=== PATIENT | male | born 1960 | race Caucasian/White ===

== ENCOUNTER 2022-04-02 09:45 | Emergency (ER) | payer MEDICARE ==
[2022-04-02 10:20] VITALS: BP 106/72; O2SAT 99
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
[2022-04-02 11:14] VITALS: PULSE 72
== END 2022-04-02 11:14 | disposition home or self-care (01) ==
LOC: ED 09:45
DX: H61.22 Impacted cerumen, left ear (principal); J44.9 Chronic obstructive pulmonary disease, unspecified; E11.9 Type 2 diabetes mellitus without complications; Z79.84 Long term (current) use of oral hypoglycemic drugs; Z79.899 Other long term (current) drug therapy
CPT/HCPCS: 99281

== ENCOUNTER 2022-06-26 14:23 | Emergency (ER) | payer MEDICARE ==
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
[2022-06-26 14:36] VITALS: BP 118/55; PULSE 78; O2SAT 98
[2022-06-26] MEDS ORDERED: Rocephin 1000 MG INJ IM ONE (15:26)
[2022-06-26] MEDS ORDERED: TORAdol 30 mg Injection IM ONE (15:26)
[2022-06-26] MEDS ORDERED: TORAdol 30 mg Injection ONE (16:04)
[2022-06-26] MEDS ORDERED: Rocephin 1000 MG INJ ONE (16:04)
== END 2022-06-26 16:28 | disposition home or self-care (01) ==
LOC: ED 14:23
DX: L03.011 Cellulitis of right finger (principal); M79.644 Pain in right finger(s); E11.9 Type 2 diabetes mellitus without complications; Z79.84 Long term (current) use of oral hypoglycemic drugs; Z79.899 Other long term (current) drug therapy
CPT/HCPCS: 96372; 99283; J0696; J1885

== ENCOUNTER 2022-07-09 10:57 | Emergency (ER) | payer MEDICARE ==
[2022-07-09] MEDS ORDERED: Sodium Chloride 0.9% 1000 ML 1,000 ML IV STA ×2 (11:28→13:18)
[2022-07-09] MEDS ORDERED: PROTONIX 40 MG IV IV ONE ×2 (11:28→11:33)
[2022-07-09] MEDS ORDERED: Zofran 4 MG/2 ML VIAL IV ONE (11:28)
[2022-07-09] MEDS ORDERED: MORPHINE SULFATE 4 MG INJ IV ONE (11:32)
[2022-07-09] MEDS ORDERED: MORPHINE SULFATE 4 MG INJ ONE (11:33)
[2022-07-09] MEDS ORDERED: Sodium Chloride 0.9% 1000 ML 1,000 ML ONE ×2 (11:33→13:18)
[2022-07-09] MEDS ORDERED: Zofran 4 MG/2 ML VIAL ONE (11:33)
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
[2022-07-09 11:45] LABS: Absolute Neutrophil Ct (ANC) 12.28 x10^3/uL (1.4-6.9); BASOPHIL % 0.1 % (0.0-0.4); Basophil (Absolute #) 0.02 x10^3/uL (0-0.4); Eosinophil % 0.1 % (0.00-5.0); Eosinophil (Absolute #) 0.02 x10^3/uL (0-0.5); Hematocrit 48.8 % (42-50); Hemoglobin 15.8 g/dL (12.5-18.0); IMMATURE GRAN # 0.06 x10^3u/L (0.00-0.03); IMMATURE GRAN % 0.4 % (0.00-0.4); Lymphocyte (Absolute #) 1.35 x10^3/uL (1.0-4.6); Mean Cell Volume 92.2 fL (78-100); Mean Corpuscular Hemoglobin 29.9 pg (26-32); Mean Corpuscular Hgb Concent. 32.4 g/dL (32-36); Mean Platelet Volume 10.4 fL (7.5-11.0); Monocyte (Absolute #) 1.26 x10^3/uL (0.0-1.3); Monocytes % 8.4 % (0.0-12.0); Platelet Count 258 x10^3/uL (150-450); Red Blood Count 5.29 x10^6/uL (4.1-5.6); Red Cell Distribution Width 15.9 % (11.5-14.0)
[2022-07-09 12:02] LABS: Appearance Clear (Clear); Bacteria None Seen /HPF (None Seen); Bilirubin Negative (Negative); Blood Small (Negative); Epithelial Cells None Seen /HPF (None Seen); Glucose, Urine >=1000 mg/dL (Negative); Ketones 40 (Negative); Leukocyte Esterase Negative (Negative); Nitrite Negative (Negative); Protein,Urine Dip 100 (Negative); RBC 0-2 /HPF (0-5); Specific Gravity >=1.030 (1.005-1.030); Urobilinogen 0.2 mg/dL (0.2); WBC 0-2 /HPF (0-5)
[2022-07-09 12:06] LABS: ADD URINE CULTURE? NO (NO)
--- NOTE | 2022-07-09 12:17 | XRAY ---
Indication: Left upper quadrant pain. Nausea, vomiting, diarrhea. Multiple contiguous axial images obtained through the abdomen and pelvis without contrast. Comparison: None Lung bases emesis minimal dependent atelectasis. Heart not enlarged. Noncontrasted stomach and bowel loops appear nonobstructed with normal appendix. Radiopacities in the ascending and transverse colon presumed ingested medication/bismuth versus barium. Minimal sigmoid diverticulosis without diverticulitis. No free fluid/air. Left kidney demonstrates 2 nonobstructing 2 mm calculi and right kidney demonstrates a few nonobstructing punctate calculi. Remaining liver, gallbladder, pancreas, spleen, adrenal glands, kidneys, ureters, and bladder are unremarkable for noncontrast exam. Minimal aortoiliac calcifications without AAA. Osseous structures intact with minimal degenerative changes throughout the spine. Impression: 1. Nonobstructing bilateral renal micro-calculi, minimal sigmoid diverticulosis, and minimal arteriosclerotic disease. 2. Remaining CT abdomen/pelvis without contrast exam is negative.
[2022-07-09 12:21] LABS: ALBUMIN 4.7 g/dL (3.5-5.0); ALKALINE PHOSPHATASE 61 U/L (38-126); ANION GAP 12.6 MEQ/L (5-15); BLOOD UREA NITROGEN 22 mg/dL (9-20); CHLORIDE 97 mmol/L (98-107); Carbon Dioxide 28 mmol/L (22-30); Creatinine 1 0.86 mg/dL (0.66-1.25); EST GLOMERULAR FILTRATION RATE > 60.0 ML/MIN; Glucose 137 mg/dL (74-106); LIPASE 56 U/L (23-300); Potassium 4.3 mmol/L (3.5-5.1); SGOT/AST 28 U/L (17-59); SGPT/ALT 22 U/L (0-50); SODIUM 133 mmol/L (137-145)
[2022-07-09 12:27] LABS: INFLUENZA A NEGATIVE (NEGATIVE); INFLUENZA B NEGATIVE (NEGATIVE); RESPIRATORY SYNCTIAL VIRUS NEGATIVE (Negative); SARS-CoV-2 Xpert Express NEGATIVE (NEGATIVE)
[2022-07-09 14:08] VITALS: BP 102/61; PULSE 73
[2022-07-09 14:17] VITALS: O2SAT 98
== END 2022-07-09 14:32 | disposition home or self-care (01) ==
LOC: ED 10:57
DX: K57.90 Diverticulosis of intestine, part unspecified, without perforation or abscess without bleeding (principal); R10.33 Periumbilical pain; N20.0 Calculus of kidney; I25.10 Atherosclerotic heart disease of native coronary artery without angina pectoris; D72.829 Elevated white blood cell count, unspecified; E87.1 Hypo-osmolality and hyponatremia; R11.2 Nausea with vomiting, unspecified; E86.0 Dehydration; R81 Glycosuria; E11.9 Type 2 diabetes mellitus without complications; Z79.84 Long term (current) use of oral hypoglycemic drugs; Z79.899 Other long term (current) drug therapy; Z20.828 Contact with and (suspected) exposure to other viral communicable diseases
CPT/HCPCS: 0241U; 36000; 36415; 74176; 80053; 81001; 82947; 83690; 84484; 85025; 93005; 96374; 96375; 99284; 96360; 96361; J2270; J2405

== ENCOUNTER 2022-10-24 11:08 | Inpatient (IN) | payer MEDICARE ==
[2022-10-24] MEDS ORDERED: PROTONIX 40 MG IV IV ONE ×2 (12:12→12:21)
[2022-10-24] MEDS ORDERED: Sodium Chloride 0.9% 1000 ML 1,000 ML IV STA ×2 (12:12→14:38)
[2022-10-24] MEDS ORDERED: Zofran 4 MG/2 ML VIAL IV ONE (12:12)
[2022-10-24] MEDS ORDERED: Zofran 4 MG/2 ML VIAL ONE ×2 (12:21→19:15)
[2022-10-24] MEDS ORDERED: Sodium Chloride 0.9% 1000 ML 1,000 ML ONE ×2 (12:21→15:05)
[2022-10-24 13:09] LABS: BASOPHIL % 0.2 % (0.0-0.4); Platelet Count 323 x10^3/uL (150-450)
[2022-10-24 13:22] LABS: ALBUMIN 4.4 g/dL (3.5-5.0); ALKALINE PHOSPHATASE 60 U/L (38-126); ANION GAP 27.7 MEQ/L (5-15); BLOOD UREA NITROGEN 22 mg/dL (9-20); CHLORIDE 93 mmol/L (98-107); Calcium 8.8 mg/dL (8.4-10.2); Creatinine 1 0.94 mg/dL (0.66-1.25); EST GLOMERULAR FILTRATION RATE > 60.0 ML/MIN; Glucose 119 mg/dL (74-106); LIPASE 78 U/L (23-300); Potassium 4.7 mmol/L (3.5-5.1); SGOT/AST 25 U/L (17-59); SGPT/ALT 26 U/L (0-50); SODIUM 132 mmol/L (137-145); Total Protein 7.6 g/dL (6.3-8.2)
[2022-10-24 13:27] LABS: Carbon Dioxide 17 mmol/L (22-30)
--- NOTE | 2022-10-24 14:28 | XRAY ---
CLINICAL HISTORY:fall; COMPARISON:None; TECHNIQUES:Axial non-contrast CT scan of the brain was performed from the skull base to the high parietal region with reformated images. CTDI: 70mGy, DLP: 1358mGy*cm; FINDINGS: The visualized brain parenchyma shows normal appearance. Medrano-white matter differentiation is maintained. No midline shifts or deformity. No intracerebral or extra axial hematoma. Normal size and configuration of the cerebral ventricles. Normal CT appearance of the posterior fossa structures namely the cerebellar hemispheres, brainstem and cerebellar peduncles. The IACs are unremarkable. The cerebello-pontine angles are clear. The osseous structures in the skull base are unremarkable. No definite calvarium fractures. MIld frontal and ethmoidal sinusitis. IMPRESSION: No intracranial hematoma, established territorial infarction or mass effect. Electronically Signed by: Rodrigo Ley MD. (10/24/2022 13:24:06 BOOTH OPERATOR)
--- NOTE | 2022-10-24 14:29 | XRAY ---
CLINICAL HISTORY:upper abdominal pain; COMPARISON:None; TECHNIQUES:Multiplanar noncontrast CT abdomen and pelvis performed. CTDI 3.44 DLP 174.4; FINDINGS: At lung bases, minimal posterior subpleural bibasal atelectasis / minimal fibrotic changes were noted. No pleural effusion. Heart size normal. No pericardial effusion. Two tiny (4 mm and 3 mm) non-obstructing left renal upper and mid pole calyceal calculi. Single tiny 3 mm right renal upper pole calyceal non-obstructing calculus were noted. These are unchanged since prior study. The critical finding and new since prior study is the distention of stomach, duodenum and proximal jejunal loop measures maximum 4 cm with zone of transition at mid jejunal loop and distal small bowel loops are collapsed. Cluster of dilated loops are seen in anterior left para-renal space. Edematous thickening of 3rd part of duodenum and proximal jejunal loops is seen. Findings are suggesting mechanical small bowel obstruction. For further evaluation, clinical correlation CT abdomen with IV and oral contrast. Uncomplicated colonic diverticulosis is an interval unchanged finding. Within the limitations of non-contrast study, the liver, spleen, pancreas both adrenal glands appear unremarkable. No pelviabdominal collections or pneumoperitoneum. Bones show degenerative changes interval stationary finding. IMPRESSION: 1. The critical finding and new since prior study is the distention of stomach, duodenum and proximal jejunal loop measures maximum 4 cm with zone of transition in mid jejunal loop with distal small bowel loops are collapsed. 2. Edematous thickening of 3rd part of duodenum and proximal jejunal loops is seen. 3. Findings are suggesting mechanical small bowel obstruction. Possibility of a left para-duodenal hernia can't be ruled out. For further evaluation, clinical correlation, CT abdomen and pelvis with IV and oral contrast is suggested. 4. Rest of the findings are interval stationary. The [facility] office was called at [phone] at 01:19 PM QUALITY MANAGEMENT NURSE, 10/24/2022 and the results are verbally communicated with Jerad Walls. Electronically Signed by: Rodrigo Ley MD. (10/24/2022 13:25:16 QUALITY MANAGEMENT NURSE)
--- NOTE | 2022-10-24 14:36 | XRAY ---
CLINICAL HISTORY:fall; COMPARISON:None; TECHNIQUES:Thin axial CT of the cervical spine was performed with sagittal and coronal reconstructions without contrast; FINDINGS: Preserved cervical lordosisis. The vertebral bodies are normal in height. No lytic or sclerotic bone lesion. No definite fractures could be detected. Degenerative changes at the atlantoaxial articulation with small bony ossicle above the dens. Mild cervical spondylotic changes with marginal osteophytes at the opposing vertebral end plates. Normal bone density of the examined vertebrae. Level by Level analysis. C2-C3: No central canal or neuroforaminal stenosis. C3-C4: Mild posterior disc bulge is seen effacing the anterior subarachnoid space. The disc bulge measures 2 mm. Bilateral facet arthropathy causes mild degenerative narrowing of the corresponding neural exit foramina. C4-C5: Mild posterior disc bulge is seen effacing the anterior subarachnoid space. The disc bulge measures 2 mm. Bilateral facet arthropathy causes mild degenerative narrowing of the corresponding neural exit foramina. C5-C6: No central canal or neuroforaminal stenosis. C6-C7: No central canal or neuroforaminal stenosis. For a better assessment of disc disease dedicated MRI remains the modality of choice if clinically indicated. The paravertebral soft tissues showed no significant abnormalities. Some retained secretions in the lower trachea. IMPRESSION: 1. No definite fractures involving the cervical spine could be detected. 2. Degenerative changes at the atlantoaxial articulation with small bony ossicle / detached osteophyte above the dens. 3. Mild cervical spondylotic changes with disc lesions as described. 4. Bilateral facet arthropathy at C3/4 and C4/5 causes mild degenerative narrowing of the corresponding neural exit foramina. 5. For a better assessment of disc disease dedicated MRI remains the modality of choice if clinically indicated. Electronically Signed by: Rodrigo Ley MD. (10/24/2022 13:34:[address] AGENT)
[2022-10-24] MEDS ORDERED: PIPERACILLIN/TAZOBACTAM 3.375 GM in Sodium Chloride 100ML MINI-BAG PLUS 100 ML IV ONE (14:37)
[2022-10-24] MEDS ORDERED: Sodium Chloride 100ML MINI-BAG PLUS 100 ML IV ONE ×2 (15:05→23:27)
[2022-10-24] MEDS ORDERED: PIPERACILLIN/TAZOBACTAM IV ONE ×2 (15:05→23:26)
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
[2022-10-24] MEDS ORDERED: DUONEB 0.5-3 MG/3 ml Neb IH PRN (16:06)
[2022-10-24] MEDS ORDERED: HUMALOG SQ PRN (16:06)
[2022-10-24] MEDS ORDERED: Zofran 4 MG/2 ML VIAL IV PRN (16:06)
[2022-10-24 16:36] LABS: Hematocrit 52.6 % (42-50); Hemoglobin 16.9 g/dL (12.5-18.0); Lymphocytes % 4.6 % (24.0-44.0); Mean Cell Volume 93.9 fL (78-100); Mean Corpuscular Hemoglobin 30.2 pg (26-32); Mean Corpuscular Hgb Concent. 32.1 g/dL (32-36); Mean Platelet Volume 10.7 fL (7.5-11.0); Neutrophil % 87.4 % (36.0-66.0); Red Cell Distribution Width 15.3 % (11.5-14.0); White Blood Count 25.2 x10^3/uL (4.0-10.5)
[2022-10-24 16:37] LABS: Absolute Neutrophil Ct (ANC) 22.03 x10^3/uL (1.4-6.9); Basophil (Absolute #) 0.06 x10^3/uL (0-0.4); Eosinophil (Absolute #) 0.01 x10^3/uL (0-0.5); IMMATURE GRAN # 0.14 x10^3u/L (0.00-0.03); IMMATURE GRAN % 0.6 % (0.00-0.4); Lymphocyte (Absolute #) 1.17 x10^3/uL (1.0-4.6); Monocyte (Absolute #) 1.82 x10^3/uL (0.0-1.3); Monocytes % 7.2 % (0.0-12.0)
[2022-10-24 16:44] LABS: Lymphocytes 9 % (24-44); Monocyte 2 % (0.0-12.0); Neutrophils 89 % (36.-66.); Platelet Estimate NORMAL (NORMAL); Total Cells Counted 100
[2022-10-24] MEDS ORDERED: VENTOLIN COMMON CANISTER IH PRN (16:47)
[2022-10-24] MEDS: Sodium Chloride 0.9% W/ 20 mEq KCl/LITER 1,000 ML IV SCH (18:40)
[2022-10-24] MEDS: PIPERACILLIN/TAZOBACTAM 3.375 GM in Sodium Chloride 100ML MINI-BAG PLUS 100 ML IV SCH ×2 (18:40→23:46)
[2022-10-24] MEDS: Hydromorphone 1 mg/ml Injection IV PRN ×2 (19:04→23:18)
--- NOTE | 2022-10-24 19:17 | XRAY ---
Indication: NG tube placement. Comparison: None Portable chest demonstrates NG tube traversing chest with tip in stomach. Remaining heart and lungs normal. Bony thorax intact with old right 2-8 rib fractures.
[2022-10-24 20:48] LABS: Appearance Clear (Clear); Bacteria None Seen /HPF (None Seen); Bilirubin Negative (Negative); Blood Trace (Negative); Epithelial Cells None Seen /HPF (None Seen); Glucose, Urine >=1000 mg/dL (Negative); Hyaline Casts NONE SEEN /LPF (0-2); Ketones >=160 (Negative); Leukocyte Esterase Negative (Negative); Nitrite Negative (Negative); Protein,Urine Dip Trace (Negative); RBC 0-2 /HPF (0-5); Specific Gravity 1.025 (1.005-1.030); Urobilinogen 0.2 mg/dL (0.2); WBC 0-2 /HPF (0-5)
[2022-10-24 21:14] LABS: ADD URINE CULTURE? YES (NO)
[2022-10-24] MEDS: Zofran 4 MG/2 ML VIAL IV PRN (23:41)
[2022-10-25] MEDS: Sodium Chloride 0.9% W/ 20 mEq KCl/LITER 1,000 ML IV SCH ×2 (00:24→10:48)
[2022-10-25] MEDS: Hydromorphone 1 mg/ml Injection IV PRN (04:32)
[2022-10-25] MEDS: Zofran 4 MG/2 ML VIAL IV PRN ×3 (04:33→20:53)
[2022-10-25 05:07] LABS: Absolute Neutrophil Ct (ANC) 19.58 x10^3/uL (1.4-6.9); BASOPHIL % 0.1 % (0.0-0.4); Basophil (Absolute #) 0.02 x10^3/uL (0-0.4); Eosinophil (Absolute #) 0 x10^3/uL (0-0.5); Hematocrit 46.4 % (42-50); Hemoglobin 15.1 g/dL (12.5-18.0); IMMATURE GRAN # 0.14 x10^3u/L (0.00-0.03); IMMATURE GRAN % 0.6 % (0.00-0.4); Lymphocyte (Absolute #) 1.11 x10^3/uL (1.0-4.6); Lymphocytes % 4.9 % (24.0-44.0); Mean Cell Volume 93.7 fL (78-100); Mean Corpuscular Hemoglobin 30.5 pg (26-32); Mean Corpuscular Hgb Concent. 32.5 g/dL (32-36); Mean Platelet Volume 10.1 fL (7.5-11.0); Monocyte (Absolute #) 1.64 x10^3/uL (0.0-1.3); Monocytes % 7.3 % (0.0-12.0); Neutrophil % 87.1 % (36.0-66.0); Platelet Count 274 x10^3/uL (150-450); Red Blood Count 4.95 x10^6/uL (4.1-5.6); Red Cell Distribution Width 15.3 % (11.5-14.0); White Blood Count 22.5 x10^3/uL (4.0-10.5)
[2022-10-25 05:28] LABS: ALBUMIN 3.7 g/dL (3.5-5.0); ALKALINE PHOSPHATASE 62 U/L (38-126); ANION GAP 23.6 MEQ/L (5-15); BLOOD UREA NITROGEN 12 mg/dL (9-20); CHLORIDE 104 mmol/L (98-107); Calcium 8.4 mg/dL (8.4-10.2); Creatinine 1 0.83 mg/dL (0.66-1.25); EST GLOMERULAR FILTRATION RATE > 60.0 ML/MIN; Glucose 100 mg/dL (74-106); SGOT/AST 17 U/L (17-59); SGPT/ALT 21 U/L (0-50); SODIUM 135 mmol/L (137-145); Total Protein 6.5 g/dL (6.3-8.2)
[2022-10-25 05:41] LABS: Carbon Dioxide 12 mmol/L (22-30)
[2022-10-25] MEDS ORDERED: PIPERACILLIN/TAZOBACTAM IV ONE (06:06)
[2022-10-25] MEDS ORDERED: Sodium Chloride 100ML MINI-BAG PLUS 100 ML IV ONE (06:07)
[2022-10-25] MEDS: PIPERACILLIN/TAZOBACTAM 3.375 GM in Sodium Chloride 100ML MINI-BAG PLUS 100 ML IV SCH ×3 (06:15→16:36)
[2022-10-25] MEDS ORDERED: Sodium Bicarbonate 50 MEQ/50 ML VIAL*** 150 MEQ in Dextrose 5%/Water IV Soln. 1000 ML 1... IV SCH (08:00)
[2022-10-25] MEDS ORDERED: Hydromorphone 1 mg/ml Injection IV PRN (08:07)
[2022-10-25 08:30] LABS: Slide Review 1 YES
[2022-10-25] MEDS ORDERED: PROTONIX 40 MG IV IV SCH (10:00)
--- NOTE | 2022-10-25 10:57 | XRAY ---
Indication: Small bowel obstruction. Multiple contiguous axial images obtained through the abdomen and pelvis using 80 cc Isovue 370 contrast. Enteric contrast use. Comparison: Noncontrast exam one day earlier. Lung bases demonstrates worsening mild bilateral dependent atelectasis. Heart not enlarged. New NG tube with tip in stomach. Contrasted stomach and bowel loops now appear nonobstructed with enteric contrast seen to the level of the rectum. Descending/transverse duodenum again demonstrates circumferential wall thickening, possible duodenitis. Normal appendix. New 1 cm left mid renal cortical cyst not seen on previous noncontrast exam. No free fluid/air. Remaining liver, gallbladder, pancreas, spleen, adrenal glands, kidneys, ureters, bladder, and aorta are unremarkable. No pathologic retroperitoneal lymphadenopathy. Impression: 1. Continued descending and transverse duodenal wall thickening favoring duodenitis. 2. Incidental small left renal cyst. 3. Remaining CT abdomen/pelvis with contrast exam is negative.
--- NOTE | 2022-10-25 11:38 | CONS ---
CONSULT DATE: 10/24/2022 REASON FOR CONSULT: Bowel obstruction. HISTORY: This 62-year-old presented to the emergency room with two weeks with almost endless vomiting. He had a noncontrast CT scan suggesting a high proximal jejunal obstruction, this was done without contrast as he has renal insufficiency and he had not been rehydrated yet. He was seen and examined at the bedside. This has been going on about two weeks. He also has a pulmonary nodule that has been evaluated. He is actually referred for a biopsy in [place] that has not been done yet. He is alert and oriented. His abdomen is moderately distended. He has nasogastric tube in and slightly foul. The CT is noted. His white count was 25,000. He has been started on IV fluid, IV antibiotics. We will get a repeat CT scan on Tuesday with p.o. and IV contrast and go from there.
--- NOTE | 2022-10-25 13:37 | PCM.NOTE ---
Date and Time: 10/25/22 1334 Subjective Assessment: Patient was admitted to Dr Rocha yesterday evening with SBO and has NGT in place. Gen Surgery consulted and will follow. Patient was followed overnight by Dr Shaver who made change in IV fluids,adding bicarb . IV infiltrated and is a difficult access. Anesthesia will do midline if needed. Repeat CT abd/pelvis was done this morning showing improvement. WBC still high =22,000 - was 25,000 yesterday. Patient is hungry. Surgery consulted and Dr Pelaez advised to clamp NGT and if tolerated then can start clear liquids. Objective Exam General Appearance: mild distress (the NGT is annoying) Neurologic Exam: alert, oriented x 3, cooperative Neck Exam: normal inspection Respiratory Exam: normal breath sounds Cardiovascular Exam: regular rate/rhythm Gastrointestinal/Abdomen Exam: tenderness (mid upper abd with uarding,BS present) Extremity Exam: normal inspection OBJECTIVE DATA Vital Signs: Vital Signs - 24 hr Temp Pulse Resp BP BP Pulse Ox 10/25/22 11:56 98.2 F 88 16 136/65 98 10/25/22 08:00 89 18 97 10/25/22 07:05 98.0 F 80 16 145/66 97 10/25/22 03:53 17 96 10/24/22 23:42 98 F 80 16 127/59 100 10/24/22 19:42 98.6 F 80 18 127/59 96 10/24/22 18:25 86 18 96 10/24/22 17:48 99 10/24/22 16:47 84 16 96 10/24/22 16:26 97.7 F 91 H 16 123/59 96 10/24/22 16:08 97.7 F 91 H 16 123/59 96 10/24/22 14:00 81 15 123/65 99 10/24/22 13:59 79 10 L 98 10/24/22 13:50 79 10 L 99 10/24/22 13:40 81 15 99 Pain Assessment - Last Documented Pain Intensity 3 Pain Scale Used 0-10 Pain Scale Intake and Output: Intake & Output 10/23/22 10/24/22 10/25/22 10/26/22 11:59 11:59 11:59 11:59 Intake Total 1576 Output Total 6030 675 Balance -1214 -675 Weight 61.235 kg 62 kg Lab Results: Lab Results-Last 24 Hours 10/24/22 10/24/22 10/24/22 Range/Units 13:07 13:07 14:38 WBC 25.2 H* (4.0-10.5) x10^3/uL RBC 5.60 (4.1-5.6) x10^6/uL Hgb 16.9 (12.5-18.0) g/dL Hct 52.6 H (42-50) % MCV 93.9 (78-100) fL MCH 30.2 (26-32) pg MCHC 32.1 (32-36) g/dL RDW 15.3 H (11.5-14.0) % Plt Count (150-450) x10^3/uL MPV 10.7 (7.5-11.0) fL Gran % 87.4 H (36.0-66.0) % Immature Gran % (Auto) 0.6 H (0.00-0.4) % Nucleat RBC Rel Count (0.00-0.1) % Eos # (Auto) 0.01 (0-0.5) x10^3/uL Immature Gran # (Auto) 0.14 H (0.00-0.03) x10^3u/L Absolute Lymphs (auto) 1.17 (1.0-4.6) x10^3/uL Absolute Monos (auto) 1.82 H (0.0-1.3) x10^3/uL Absolute Nucleated RBC (0.00-0.01) x10^3u/L Lymphocytes % 4.6 L (24.0-44.0) % Monocytes % 7.2 (0.0-12.0) % Eosinophils % 0.0 (0.00-5.0) % Basophils % (0.0-0.4) % Absolute Granulocytes 22.03 H (1.4-6.9) x10^3/uL Segmented Neutrophils 89 H (36.-66.) % Lymphocytes (Manual) 9 L (24-44) % Monocytes (Manual) 2 (0.0-12.0) % Basophils # 0.06 (0-0.4) x10^3/uL Platelet Estimate NORMAL (NORMAL) RBC Morphology NORMAL Sodium (137-145) mmol/L Potassium (3.5-5.1) mmol/L Chloride (98-107) mmol/L Carbon Dioxide (22-30) mmol/L Anion Gap (5-15) MEQ/L BUN (9-20) mg/dL Creatinine (0.66-1.25) mg/dL Estimated GFR ML/MIN Glucose (74-106) mg/dL POC Glucometer (74 to 106) mg/dL Lactic Acid 1.7 (0.4-2.0) Calcium (8.4-10.2) mg/dL Total Bilirubin (0.2-1.3) mg/dL AST (17-59) U/L ALT (0-50) U/L Alkaline Phosphatase (38-126) U/L Troponin I < 0.012 (0.000-0.034) ng/mL Serum Total Protein (6.3-8.2) g/dL Albumin (3.5-5.0) g/dL Urine Color (Yellow) Urine Appearance (Clear) Urine pH (4.6-8.0) Ur Specific [place] (1.005-1.030) Urine Protein (Negative) Urine Glucose (UA) (Negative) mg/dL Urine Ketones (Negative) Urine Blood (Negative) Urine Nitrite (Negative) Urine Bilirubin (Negative) Urine Urobilinogen (0.2) mg/dL Ur Leukocyte Esterase (Negative) U Hyaline Cast (Auto) (0-2) /LPF Urine Microscopic RBC (0-5) /HPF Urine Microscopic WBC (0-5) /HPF Ur Epithelial Cells (None Seen) /HPF Urine Bacteria (None Seen) /HPF Urine Culture Reflexed (NO) Slides for Path Review 10/24/22 10/24/22 10/24/22 Range/Units 16:57 19:56 20:36 WBC (4.0-10.5) x10^3/uL RBC (4.1-5.6) x10^6/uL Hgb (12.5-18.0) g/dL Hct (42-50) % MCV (78-100) fL MCH (26-32) pg MCHC (32-36) g/dL RDW (11.5-14.0) % Plt Count (150-450) x10^3/uL MPV (7.5-11.0) fL Gran % (36.0-66.0) % Immature Gran % (Auto) (0.00-0.4) % Nucleat RBC Rel Count (0.00-0.1) % Eos # (Auto) (0-0.5) x10^3/uL Immature Gran # (Auto) (0.00-0.03) x10^3u/L Absolute Lymphs (auto) (1.0-4.6) x10^3/uL Absolute Monos (auto) (0.0-1.3) x10^3/uL Absolute Nucleated RBC (0.00-0.01) x10^3u/L Lymphocytes % (24.0-44.0) % Monocytes % (0.0-12.0) % Eosinophils % (0.00-5.0) % Basophils % (0.0-0.4) % Absolute Granulocytes (1.4-6.9) x10^3/uL Segmented Neutrophils (36.-66.) % Lymphocytes (Manual) (24-44) % Monocytes (Manual) (0.0-12.0) % Basophils # (0-0.4) x10^3/uL Platelet Estimate (NORMAL) RBC Morphology Sodium (137-145) mmol/L Potassium (3.5-5.1) mmol/L Chloride (98-107) mmol/L Carbon Dioxide (22-30) mmol/L Anion Gap (5-15) MEQ/L BUN (9-20) mg/dL Creatinine (0.66-1.25) mg/dL Estimated GFR ML/MIN Glucose (74-106) mg/dL POC Glucometer 113 H (74 to 106) mg/dL Lactic Acid (0.4-2.0) Calcium (8.4-10.2) mg/dL Total Bilirubin (0.2-1.3) mg/dL AST (17-59) U/L ALT (0-50) U/L Alkaline Phosphatase (38-126) U/L Troponin I < 0.012 (0.000-0.034) ng/mL Serum Total Protein (6.3-8.2) g/dL Albumin (3.5-5.0) g/dL Urine Color Yellow (Yellow) Urine Appearance Clear (Clear) Urine pH 5.0 (4.6-8.0) Ur Specific [place] 1.025 (1.005-1.030) Urine Protein Trace A (Negative) Urine Glucose (UA) >=1000 A (Negative) mg/dL Urine Ketones >=160 A (Negative) Urine Blood Trace (Negative) Urine Nitrite Negative (Negative) Urine Bilirubin Negative (Negative) Urine Urobilinogen 0.2 (0.2) mg/dL Ur Leukocyte Esterase Negative (Negative) U Hyaline Cast (Auto) NONE SEEN (0-2) /LPF Urine Microscopic RBC 0-2 (0-5) /HPF Urine Microscopic WBC 0-2 (0-5) /HPF Ur Epithelial Cells None Seen (None Seen) /HPF Urine Bacteria None Seen (None Seen) /HPF Urine Culture Reflexed YES (NO) Slides for Path Review 10/25/22 10/25/22 10/25/22 Range/Units 05:05 05:05 05:05 WBC 22.5 H (4.0-10.5) x10^3/uL RBC 4.95 (4.1-5.6) x10^6/uL Hgb 15.1 (12.5-18.0) g/dL Hct 46.4 (42-50) % MCV 93.7 (78-100) fL MCH 30.5 (26-32) pg MCHC 32.5 (32-36) g/dL RDW 15.3 H (11.5-14.0) % Plt Count 274 (150-450) x10^3/uL MPV 10.1 (7.5-11.0) fL Gran % 87.1 H (36.0-66.0) % Immature Gran % (Auto) 0.6 H (0.00-0.4) % Nucleat RBC Rel Count 0.0 (0.00-0.1) % Eos # (Auto) 0 (0-0.5) x10^3/uL Immature Gran # (Auto) 0.14 H (0.00-0.03) x10^3u/L Absolute Lymphs (auto) 1.11 (1.0-4.6) x10^3/uL Absolute Monos (auto) 1.64 H (0.0-1.3) x10^3/uL Absolute Nucleated RBC 0.00 (0.00-0.01) x10^3u/L Lymphocytes % 4.9 L (24.0-44.0) % Monocytes % 7.3 (0.0-12.0) % Eosinophils % 0.0 (0.00-5.0) % Basophils % 0.1 (0.0-0.4) % Absolute Granulocytes 19.58 H (1.4-6.9) x10^3/uL Segmented Neutrophils (36.-66.) % Lymphocytes (Manual) (24-44) % Monocytes (Manual) (0.0-12.0) % Basophils # 0.02 (0-0.4) x10^3/uL Platelet Estimate (NORMAL) RBC Morphology Sodium 135 L (137-145) mmol/L Potassium 5.0 (3.5-5.1) mmol/L Chloride 104 (98-107) mmol/L Carbon Dioxide 12 L* (22-30) mmol/L Anion Gap 23.6 H (5-15) MEQ/L BUN 12 (9-20) mg/dL Creatinine 0.83 (0.66-1.25) mg/dL Estimated GFR > 60.0 ML/MIN Glucose 100 (74-106) mg/dL POC Glucometer (74 to 106) mg/dL Lactic Acid (0.4-2.0) Calcium 8.4 (8.4-10.2) mg/dL Total Bilirubin 0.50 (0.2-1.3) mg/dL AST 17 (17-59) U/L ALT 21 (0-50) U/L Alkaline Phosphatase 62 (38-126) U/L Troponin I < 0.012 (0.000-0.034) ng/mL Serum Total Protein 6.5 (6.3-8.2) g/dL Albumin 3.7 (3.5-5.0) g/dL Urine Color (Yellow) Urine Appearance (Clear) Urine pH (4.6-8.0) Ur Specific [place] (1.005-1.030) Urine Protein (Negative) Urine Glucose (UA) (Negative) mg/dL Urine Ketones (Negative) Urine Blood (Negative) Urine Nitrite (Negative) Urine Bilirubin (Negative) Urine Urobilinogen (0.2) mg/dL Ur Leukocyte Esterase (Negative) U Hyaline Cast (Auto) (0-2) /LPF Urine Microscopic RBC (0-5) /HPF Urine Microscopic WBC (0-5) /HPF Ur Epithelial Cells (None Seen) /HPF Urine Bacteria (None Seen) /HPF Urine Culture Reflexed (NO) Slides for Path Review YES 10/25/22 10/25/22 Range/Units 06:55 11:30 WBC (4.0-10.5) x10^3/uL RBC (4.1-5.6) x10^6/uL Hgb (12.5-18.0) g/dL Hct (42-50) % MCV (78-100) fL MCH (26-32) pg MCHC (32-36) g/dL RDW (11.5-14.0) % Plt Count (150-450) x10^3/uL MPV (7.5-11.0) fL Gran % (36.0-66.0) % Immature Gran % (Auto) (0.00-0.4) % Nucleat RBC Rel Count (0.00-0.1) % Eos # (Auto) (0-0.5) x10^3/uL Immature Gran # (Auto) (0.00-0.03) x10^3u/L Absolute Lymphs (auto) (1.0-4.6) x10^3/uL Absolute Monos (auto) (0.0-1.3) x10^3/uL Absolute Nucleated RBC (0.00-0.01) x10^3u/L Lymphocytes % (24.0-44.0) % Monocytes % (0.0-12.0) % Eosinophils % (0.00-5.0) % Basophils % (0.0-0.4) % Absolute Granulocytes (1.4-6.9) x10^3/uL Segmented Neutrophils (36.-66.) % Lymphocytes (Manual) (24-44) % Monocytes (Manual) (0.0-12.0) % Basophils # (0-0.4) x10^3/uL Platelet Estimate (NORMAL) RBC Morphology Sodium (137-145) mmol/L Potassium (3.5-5.1) mmol/L Chloride (98-107) mmol/L Carbon Dioxide (22-30) mmol/L Anion Gap (5-15) MEQ/L BUN (9-20) mg/dL Creatinine (0.66-1.25) mg/dL Estimated GFR ML/MIN Glucose (74-106) mg/dL POC Glucometer 113 H 205 H (74 to 106) mg/dL Lactic Acid (0.4-2.0) Calcium (8.4-10.2) mg/dL Total Bilirubin (0.2-1.3) mg/dL AST (17-59) U/L ALT (0-50) U/L Alkaline Phosphatase (38-126) U/L Troponin I (0.000-0.034) ng/mL Serum Total Protein (6.3-8.2) g/dL Albumin (3.5-5.0) g/dL Urine Color (Yellow) Urine Appearance (Clear) Urine pH (4.6-8.0) Ur Specific [place] (1.005-1.030) Urine Protein (Negative) Urine Glucose (UA) (Negative) mg/dL Urine Ketones (Negative) Urine Blood (Negative) Urine Nitrite (Negative) Urine Bilirubin (Negative) Urine Urobilinogen (0.2) mg/dL Ur Leukocyte Esterase (Negative) U Hyaline Cast (Auto) (0-2) /LPF Urine Microscopic RBC (0-5) /HPF Urine Microscopic WBC (0-5) /HPF Ur Epithelial Cells (None Seen) /HPF Urine Bacteria (None Seen) /HPF Urine Culture Reflexed (NO) Slides for Path Review Radiology Exams: Radiology Procedures Category Date Time Status ABDOMEN AND PELVIS W CONTRAST [CT] Routine Exams 10/25/22 09:47 Completed ABDOMEN AND PELVIS W/0 CONTRAS [CT] Stat Exams 10/24/22 12:13 Completed CERVICAL SPINE WO CONTRAST [CT] Stat Exams 10/24/22 12:14 Completed CHEST 1 VIEW (PORTABLE) Stat Exams 10/24/22 15:05 Completed HEAD WITHOUT CONTRAST [CT] Stat Exams 10/24/22 12:14 Completed Assessment/Plan (1) Small bowel obstruction Current Visit: Yes Status: Resolved Assessment & Plan: repeat CT shows severe duodenitis ,continue IV Protonix and start clear liqids with clamped NGT Code(s): K56.609 - UNSP INTESTNL OBST, UNSP TO PARTIAL VERSUS COMPLETE OBST (2) Leukocytosis Current Visit: Yes Status: Acute Assessment & Plan: improved Code(s): D72.829 - ELEVATED WHITE BLOOD CELL COUNT, UNSPECIFIED (3) DM2 (diabetes mellitus, type 2) Current Visit: Yes Status: Chronic Assessment & Plan: monitor
[2022-10-25] MEDS: Hydromorphone 1 mg/ml Injection SQ PRN ×2 (14:30→22:02)
[2022-10-25] MEDS ORDERED: Hydromorphone 1 mg/ml Injection IM PRN (14:30)
[2022-10-25] MEDS ORDERED: ZOFRAN ODT 4 MG PO PRN (14:31)
[2022-10-25] MEDS ORDERED: Xylocaine-Mpf 2% 5 Ml Vial ONE (16:19)
[2022-10-25] MEDS: Sodium Chloride 0.9% 1000 ML 1,000 ML IV SCH (16:41)
[2022-10-25] MEDS: Cymbalta 30 MG Capsule PO SCH (16:48)
[2022-10-25 18:28] LABS: Absolute Neutrophil Ct (ANC) 14.57 x10^3/uL (1.4-6.9); BASOPHIL % 0.1 % (0.0-0.4); Basophil (Absolute #) 0.01 x10^3/uL (0-0.4); Eosinophil % 0.1 % (0.00-5.0); Eosinophil (Absolute #) 0.02 x10^3/uL (0-0.5); Hematocrit 45.9 % (42-50); Hemoglobin 14.7 g/dL (12.5-18.0); IMMATURE GRAN # 0.07 x10^3u/L (0.00-0.03); IMMATURE GRAN % 0.4 % (0.00-0.4); Lymphocyte (Absolute #) 1.21 x10^3/uL (1.0-4.6); Lymphocytes % 6.9 % (24.0-44.0); Mean Cell Volume 93.9 fL (78-100); Mean Corpuscular Hemoglobin 30.1 pg (26-32); Mean Platelet Volume 9.8 fL (7.5-11.0); Monocyte (Absolute #) 1.56 x10^3/uL (0.0-1.3); Monocytes % 8.9 % (0.0-12.0); Neutrophil % 83.6 % (36.0-66.0); Platelet Count 243 x10^3/uL (150-450); Red Blood Count 4.89 x10^6/uL (4.1-5.6); Red Cell Distribution Width 15.1 % (11.5-14.0); White Blood Count 17.4 x10^3/uL (4.0-10.5)
[2022-10-25 18:50] LABS: ANION GAP 19.1 MEQ/L (5-15); BLOOD UREA NITROGEN 8 mg/dL (9-20); CHLORIDE 100 mmol/L (98-107); Calcium 8.4 mg/dL (8.4-10.2); Carbon Dioxide 19 mmol/L (22-30); Creatinine 1 0.67 mg/dL (0.66-1.25); EST GLOMERULAR FILTRATION RATE > 60.0 ML/MIN; Glucose 111 mg/dL (74-106); Potassium 4.2 mmol/L (3.5-5.1); SODIUM 134 mmol/L (137-145)
[2022-10-25 19:31] LABS: Slide Review 1 YES
[2022-10-25] MEDS: PROTONIX 40 MG IV IV SCH (20:53)
[2022-10-26] MEDS: PIPERACILLIN/TAZOBACTAM 3.375 GM in Sodium Chloride 100ML MINI-BAG PLUS 100 ML IV SCH ×4 (00:39→17:36)
[2022-10-26] MEDS: Hydromorphone 1 mg/ml Injection SQ PRN (02:31)
[2022-10-26] MEDS: Zofran 4 MG/2 ML VIAL IV PRN ×5 (02:32→21:08)
[2022-10-26 04:54] LABS: Absolute Neutrophil Ct (ANC) 12.08 x10^3/uL (1.4-6.9); BASOPHIL % 0.1 % (0.0-0.4); Basophil (Absolute #) 0.01 x10^3/uL (0-0.4); Eosinophil % 0.3 % (0.00-5.0); Eosinophil (Absolute #) 0.04 x10^3/uL (0-0.5); Hematocrit 44.6 % (42-50); Hemoglobin 14.5 g/dL (12.5-18.0); IMMATURE GRAN # 0.09 x10^3u/L (0.00-0.03); IMMATURE GRAN % 0.6 % (0.00-0.4); Lymphocyte (Absolute #) 0.91 x10^3/uL (1.0-4.6); Lymphocytes % 6.3 % (24.0-44.0); Mean Cell Volume 91.4 fL (78-100); Mean Corpuscular Hemoglobin 29.7 pg (26-32); Mean Corpuscular Hgb Concent. 32.5 g/dL (32-36); Mean Platelet Volume 10.2 fL (7.5-11.0); Monocyte (Absolute #) 1.23 x10^3/uL (0.0-1.3); Monocytes % 8.6 % (0.0-12.0); Neutrophil % 84.1 % (36.0-66.0); Platelet Count 228 x10^3/uL (150-450); Red Blood Count 4.88 x10^6/uL (4.1-5.6); White Blood Count 14.4 x10^3/uL (4.0-10.5)
[2022-10-26 05:19] LABS: ALBUMIN 3.7 g/dL (3.5-5.0); ALKALINE PHOSPHATASE 58 U/L (38-126); AMYLASE 113 U/L (30-110); ANION GAP 17.8 MEQ/L (5-15); BLOOD UREA NITROGEN 9 mg/dL (9-20); CHLORIDE 100 mmol/L (98-107); Calcium 8.3 mg/dL (8.4-10.2); Carbon Dioxide 21 mmol/L (22-30); Creatinine 1 0.68 mg/dL (0.66-1.25); EST GLOMERULAR FILTRATION RATE > 60.0 ML/MIN; Glucose 113 mg/dL (74-106); LIPASE 45 U/L (23-300); SGOT/AST 14 U/L (17-59); SGPT/ALT 18 U/L (0-50); SODIUM 134 mmol/L (137-145); Total Protein 6.5 g/dL (6.3-8.2)
[2022-10-26] MEDS: Hydromorphone 1 mg/ml Injection IV PRN ×4 (06:40→21:09)
[2022-10-26] MEDS: Cymbalta 30 MG Capsule PO SCH (08:11)
[2022-10-26] MEDS: PROTONIX 40 MG IV IV SCH ×2 (08:11→21:09)
[2022-10-26] MEDS: HOLD METFORMIN PRODUCTS FOR 48 HOURS MC SCH ×2 (09:54→09:56)
[2022-10-26] MEDS: Sodium Chloride 0.9% 1000 ML 1,000 ML IV SCH (13:57)
--- NOTE | 2022-10-26 22:29 | PCM.NOTE ---
Date and Time: 10/26/222218 Subjective Assessment: Patient states abdominal pain is about 80% improved and is very hungry, stomach growling. NGT was clamped yesterday afternoon and patient has been tolerating a clear liquid diet.Will pull NGT and advance diet slowly. Objective Exam General Appearance: no apparent distress Neurologic Exam: alert, oriented x 3, cooperative Skin Exam: normal color, warm, dry Respiratory Exam: normal breath sounds Cardiovascular Exam: regular rate/rhythm Gastrointestinal/Abdomen Exam: tenderness (epigastium,no guarding ,increased BS) Extremity Exam: normal inspection OBJECTIVE DATA Vital Signs: Vital Signs - 24 hr Temp Pulse Resp BP Pulse Ox 10/26/22 19:55 97.6 F 82 17 131/63 96 10/26/22 19:21 87 18 93 L 10/26/22 16:00 97.3 F 69 16 180/78 97 10/26/22 11:18 97.1 F 76 16 149/72 96 10/26/22 07:44 84 14 96 10/26/22 07:32 97.1 F 75 16 137/65 96 10/26/22 04:00 97.1 F 76 18 133/66 96 10/25/22 23:41 97.5 F 82 18 123/59 96 Pain Assessment - Last Documented Pain Intensity 3 Pain Scale Used 0-10 Pain Scale Intake and Output: Intake & Output 10/24/22 10/25/22 10/26/22 10/27/22 11:59 11:59 11:59 11:59 Intake Total 2431 2096 1171 Output Total 2790 2360 Balance -359 -264 1171 Weight 61.235 kg 62 kg 61.9 kg Lab Results: Lab Results-Last 24 Hours 10/26/22 10/26/22 10/26/22 Range/Units 04:40 04:40 07:22 WBC 14.4 H (4.0-10.5) x10^3/uL RBC 4.88 (4.1-5.6) x10^6/uL Hgb 14.5 (12.5-18.0) g/dL Hct 44.6 (42-50) % MCV 91.4 (78-100) fL MCH 29.7 (26-32) pg MCHC 32.5 (32-36) g/dL RDW 15.0 H (11.5-14.0) % Plt Count 228 (150-450) x10^3/uL MPV 10.2 (7.5-11.0) fL Gran % 84.1 H (36.0-66.0) % Immature Gran % (Auto) 0.6 H (0.00-0.4) % Nucleat RBC Rel Count 0.0 (0.00-0.1) % Eos # (Auto) 0.04 (0-0.5) x10^3/uL Immature Gran # (Auto) 0.09 H (0.00-0.03) x10^3u/L Absolute Lymphs (auto) 0.91 L (1.0-4.6) x10^3/uL Absolute Monos (auto) 1.23 (0.0-1.3) x10^3/uL Absolute Nucleated RBC 0.00 (0.00-0.01) x10^3u/L Lymphocytes % 6.3 L (24.0-44.0) % Monocytes % 8.6 (0.0-12.0) % Eosinophils % 0.3 (0.00-5.0) % Basophils % 0.1 (0.0-0.4) % Absolute Granulocytes 12.08 H (1.4-6.9) x10^3/uL Basophils # 0.01 (0-0.4) x10^3/uL Sodium 134 L (137-145) mmol/L Potassium 4.0 (3.5-5.1) mmol/L Chloride 100 (98-107) mmol/L Carbon Dioxide 21 L (22-30) mmol/L Anion Gap 17.8 H (5-15) MEQ/L BUN 9 (9-20) mg/dL Creatinine 0.68 (0.66-1.25) mg/dL Estimated GFR > 60.0 ML/MIN Glucose 113 H (74-106) mg/dL POC Glucometer 122 H (74 to 106) mg/dL Calcium 8.3 L (8.4-10.2) mg/dL Total Bilirubin 0.60 (0.2-1.3) mg/dL AST 14 L (17-59) U/L ALT 18 (0-50) U/L Alkaline Phosphatase 58 (38-126) U/L Serum Total Protein 6.5 (6.3-8.2) g/dL Albumin 3.7 (3.5-5.0) g/dL Amylase 113 H (30-110) U/L Lipase 45 (23-300) U/L 10/26/22 10/26/22 10/26/22 Range/Units 07:22 10:55 15:50 WBC (4.0-10.5) x10^3/uL RBC (4.1-5.6) x10^6/uL Hgb (12.5-18.0) g/dL Hct (42-50) % MCV (78-100) fL MCH (26-32) pg MCHC (32-36) g/dL RDW (11.5-14.0) % Plt Count (150-450) x10^3/uL MPV (7.5-11.0) fL Gran % (36.0-66.0) % Immature Gran % (Auto) (0.00-0.4) % Nucleat RBC Rel Count (0.00-0.1) % Eos # (Auto) (0-0.5) x10^3/uL Immature Gran # (Auto) (0.00-0.03) x10^3u/L Absolute Lymphs (auto) (1.0-4.6) x10^3/uL Absolute Monos (auto) (0.0-1.3) x10^3/uL Absolute Nucleated RBC (0.00-0.01) x10^3u/L Lymphocytes % (24.0-44.0) % Monocytes % (0.0-12.0) % Eosinophils % (0.00-5.0) % Basophils % (0.0-0.4) % Absolute Granulocytes (1.4-6.9) x10^3/uL Basophils # (0-0.4) x10^3/uL Sodium (137-145) mmol/L Potassium (3.5-5.1) mmol/L Chloride (98-107) mmol/L Carbon Dioxide (22-30) mmol/L Anion Gap (5-15) MEQ/L BUN (9-20) mg/dL Creatinine (0.66-1.25) mg/dL Estimated GFR ML/MIN Glucose (74-106) mg/dL POC Glucometer 122 H 132 H 118 H (74 to 106) mg/dL Calcium (8.4-10.2) mg/dL Total Bilirubin (0.2-1.3) mg/dL AST (17-59) U/L ALT (0-50) U/L Alkaline Phosphatase (38-126) U/L Serum Total Protein (6.3-8.2) g/dL Albumin (3.5-5.0) g/dL Amylase (30-110) U/L Lipase (23-300) U/L / Range/Units 20:56 WBC (4.0-10.5) x10^3/uL RBC (4.1-5.6) x10^6/uL Hgb (12.5-18.0) g/dL Hct (42-50) % MCV (78-100) fL MCH (26-32) pg MCHC (32-36) g/dL RDW (11.5-14.0) % Plt Count (150-450) x10^3/uL MPV (7.5-11.0) fL Gran % (36.0-66.0) % Immature Gran % (Auto) (0.00-0.4) % Nucleat RBC Rel Count (0.00-0.1) % Eos # (Auto) (0-0.5) x10^3/uL Immature Gran # (Auto) (0.00-0.03) x10^3u/L Absolute Lymphs (auto) (1.0-4.6) x10^3/uL Absolute Monos (auto) (0.0-1.3) x10^3/uL Absolute Nucleated RBC (0.00-0.01) x10^3u/L Lymphocytes % (24.0-44.0) % Monocytes % (0.0-12.0) % Eosinophils % (0.00-5.0) % Basophils % (0.0-0.4) % Absolute Granulocytes (1.4-6.9) x10^3/uL Basophils # (0-0.4) x10^3/uL Sodium (137-145) mmol/L Potassium (3.5-5.1) mmol/L Chloride (98-107) mmol/L Carbon Dioxide (22-30) mmol/L Anion Gap (5-15) MEQ/L BUN (9-20) mg/dL Creatinine (0.66-1.25) mg/dL Estimated GFR ML/MIN Glucose (74-106) mg/dL POC Glucometer 109 H (74 to 106) mg/dL Calcium (8.4-10.2) mg/dL Total Bilirubin (0.2-1.3) mg/dL AST (17-59) U/L ALT (0-50) U/L Alkaline Phosphatase (38-126) U/L Serum Total Protein (6.3-8.2) g/dL Albumin (3.5-5.0) g/dL Amylase (30-110) U/L Lipase (23-300) U/L Radiology Exams: Radiology Procedures Category Date Time Status ABDOMEN AND PELVIS W CONTRAST [CT] Routine Exams 10/25/22 09:47 Completed Multi-Disciplinary Progress Notes: Multi-Disciplinary Progress Notes 10/26/22 19:32 Respiratory Note by Danica Bennett RT offered CPAP as NG tube is no longer in. Patient continues to refuse cpap therapy at this time. Benefits of CPAP therapy discussed with patient. Initialized on 10/26/22 19:32 - END OF NOTE 10/26/22 10:20 Case Management Note by Kati Johnson S/W PATIENT. HE CONTINUES TO DENY ANY NEW NEEDS AT TIME OF DC. HE PLANS TO RETURN HOME WITH HIS AT [facility] WHEN HE DC'S. Initialized on 10/26/22 10:20 - END OF NOTE Assessment/Plan (1) Leukocytosis Current Visit: Yes Status: Acute Assessment & Plan: improving,continue Zosyn Code(s): D72.829 - ELEVATED WHITE BLOOD CELL COUNT, UNSPECIFIED (2) Duodenitis Current Visit: Yes Status: Acute Assessment & Plan: continue IV tx Code(s): K29.80 - DUODENITIS WITHOUT BLEEDING (3) Small bowel obstruction Current Visit: Yes Status: Resolved Assessment & Plan: pull NGT advance diet slowly Code(s): K56.609 - UNSP INTESTNL OBST, UNSP TO PARTIAL VERSUS COMPLETE OBST
[2022-10-27] MEDS: PIPERACILLIN/TAZOBACTAM 3.375 GM in Sodium Chloride 100ML MINI-BAG PLUS 100 ML IV SCH ×4 (01:39→18:12)
[2022-10-27 05:17] LABS: Absolute Neutrophil Ct (ANC) 5.77 x10^3/uL (1.4-6.9); BASOPHIL % 0.3 % (0.0-0.4); Basophil (Absolute #) 0.02 x10^3/uL (0-0.4); Eosinophil % 1.5 % (0.00-5.0); Eosinophil (Absolute #) 0.12 x10^3/uL (0-0.5); Hematocrit 42.1 % (42-50); Hemoglobin 14.2 g/dL (12.5-18.0); IMMATURE GRAN # 0.03 x10^3u/L (0.00-0.03); IMMATURE GRAN % 0.4 % (0.00-0.4); Lymphocyte (Absolute #) 1.18 x10^3/uL (1.0-4.6); Lymphocytes % 14.8 % (24.0-44.0); Mean Cell Volume 90.3 fL (78-100); Mean Corpuscular Hemoglobin 30.5 pg (26-32); Mean Corpuscular Hgb Concent. 33.7 g/dL (32-36); Mean Platelet Volume 10.3 fL (7.5-11.0); Monocyte (Absolute #) 0.85 x10^3/uL (0.0-1.3); Monocytes % 10.7 % (0.0-12.0); Neutrophil % 72.3 % (36.0-66.0); Platelet Count 215 x10^3/uL (150-450); Red Blood Count 4.66 x10^6/uL (4.1-5.6); Red Cell Distribution Width 15.1 % (11.5-14.0)
[2022-10-27 05:45] LABS: ALBUMIN 3.4 g/dL (3.5-5.0); ALKALINE PHOSPHATASE 51 U/L (38-126); BLOOD UREA NITROGEN 8 mg/dL (9-20); CHLORIDE 102 mmol/L (98-107); Calcium 8.2 mg/dL (8.4-10.2); Carbon Dioxide 22 mmol/L (22-30); Creatinine 1 0.59 mg/dL (0.66-1.25); EST GLOMERULAR FILTRATION RATE > 60.0 ML/MIN; Glucose 97 mg/dL (74-106); Potassium 3.6 mmol/L (3.5-5.1); SGOT/AST 14 U/L (17-59); SGPT/ALT 15 U/L (0-50); SODIUM 135 mmol/L (137-145); Total Protein 6.2 g/dL (6.3-8.2)
[2022-10-27] MEDS: Hydromorphone 1 mg/ml Injection SQ PRN ×3 (06:54→17:15)
[2022-10-27] MEDS: Zofran 4 MG/2 ML VIAL IV PRN ×3 (08:56→21:49)
[2022-10-27] MEDS: PROTONIX 40 MG IV IV SCH ×2 (08:56→21:49)
[2022-10-27] MEDS ORDERED: PHARMACY DOSING REQUEST MC ONE (09:16)
[2022-10-27] MEDS: Hydromorphone 1 mg/ml Injection IV PRN ×2 (10:03→21:50)
[2022-10-27] MEDS: Pepcid 20 MG VIAL IV SCH ×2 (10:21→21:49)
[2022-10-27] MEDS: Cymbalta 30 MG Capsule PO SCH (10:23)
[2022-10-27] MEDS: Sodium Chloride 0.9% 1000 ML 1,000 ML IV SCH (10:28)
[2022-10-27] MEDS: HOLD METFORMIN PRODUCTS FOR 48 HOURS MC SCH (10:31)
[2022-10-27] MEDS ORDERED: Carafate 1 GM PO SCH (11:30)
[2022-10-27] MEDS ORDERED: Compazine 5 MG PO SCH (11:30)
[2022-10-27] MEDS: FLAGYL 500 MG IVPB 500 MG/100 ML BAG IV SCH ×2 (11:35→17:09)
[2022-10-27] MEDS: Sodium Chloride 0.9% W/ 20 mEq KCl/LITER 1,000 ML IV SCH ×2 (15:55→15:56)
[2022-10-27] MEDS ORDERED: PERIKABIVEN PERIPH TPN 1,920 ML with Vitamins For Infusion 10 ML INJECTION*** 10 ML, TR... IV SCH ×3 (16:00)
[2022-10-28] MEDS: FLAGYL 500 MG IVPB 500 MG/100 ML BAG IV SCH ×4 (00:33→17:44)
[2022-10-28] MEDS: PIPERACILLIN/TAZOBACTAM 3.375 GM in Sodium Chloride 100ML MINI-BAG PLUS 100 ML IV SCH ×4 (01:07→17:26)
[2022-10-28] MEDS: Zofran 4 MG/2 ML VIAL IV PRN ×3 (04:29→15:54)
[2022-10-28] MEDS: Hydromorphone 1 mg/ml Injection IV PRN ×3 (04:29→21:55)
[2022-10-28 04:50] LABS: Absolute Neutrophil Ct (ANC) 5.33 x10^3/uL (1.4-6.9); BASOPHIL % 0.4 % (0.0-0.4); Basophil (Absolute #) 0.03 x10^3/uL (0-0.4); Eosinophil % 1.8 % (0.00-5.0); Eosinophil (Absolute #) 0.14 x10^3/uL (0-0.5); Hematocrit 40.9 % (42-50); Hemoglobin 13.5 g/dL (12.5-18.0); IMMATURE GRAN # 0.03 x10^3u/L (0.00-0.03); IMMATURE GRAN % 0.4 % (0.00-0.4); Lymphocyte (Absolute #) 1.38 x10^3/uL (1.0-4.6); Mean Cell Volume 89.3 fL (78-100); Mean Corpuscular Hemoglobin 29.5 pg (26-32); Mean Platelet Volume 10.1 fL (7.5-11.0); Monocyte (Absolute #) 0.75 x10^3/uL (0.0-1.3); Monocytes % 9.8 % (0.0-12.0); Neutrophil % 69.6 % (36.0-66.0); Platelet Count 241 x10^3/uL (150-450); Red Blood Count 4.58 x10^6/uL (4.1-5.6); Red Cell Distribution Width 14.5 % (11.5-14.0); White Blood Count 7.7 x10^3/uL (4.0-10.5)
[2022-10-28 05:08] LABS: ALBUMIN 3.3 g/dL (3.5-5.0); ALKALINE PHOSPHATASE 44 U/L (38-126); ANION GAP 13.5 MEQ/L (5-15); BLOOD UREA NITROGEN 8 mg/dL (9-20); CHLORIDE 100 mmol/L (98-107); Calcium 8.1 mg/dL (8.4-10.2); Carbon Dioxide 24 mmol/L (22-30); Creatinine 1 0.47 mg/dL (0.66-1.25); EST GLOMERULAR FILTRATION RATE > 60.0 ML/MIN; Glucose 149 mg/dL (74-106); MAGNESIUM 1.8 mg/dL (1.6-2.3); Potassium 3.4 mmol/L (3.5-5.1); SGOT/AST 13 U/L (17-59); SGPT/ALT 14 U/L (0-50); SODIUM 134 mmol/L (137-145); Total Protein 6.1 g/dL (6.3-8.2)
[2022-10-28] MEDS: Cymbalta 30 MG Capsule PO SCH (09:07)
[2022-10-28] MEDS: PROTONIX 40 MG IV IV SCH ×2 (09:08→21:44)
[2022-10-28] MEDS: Pepcid 20 MG VIAL IV SCH ×2 (09:08→21:44)
[2022-10-28] MEDS: Hydromorphone 1 mg/ml Injection SQ PRN (09:26)
[2022-10-28 09:51] LABS: ALBUMIN 3.8 g/dL (3.5-5.0); ALKALINE PHOSPHATASE 50 U/L (38-126); ANION GAP 13.9 MEQ/L (5-15); BLOOD UREA NITROGEN 8 mg/dL (9-20); CHLORIDE 100 mmol/L (98-107); Calcium 8.4 mg/dL (8.4-10.2); Carbon Dioxide 24 mmol/L (22-30); Creatinine 1 0.49 mg/dL (0.66-1.25); EST GLOMERULAR FILTRATION RATE > 60.0 ML/MIN; Glucose 173 mg/dL (74-106); Potassium 3.5 mmol/L (3.5-5.1); SGOT/AST 15 U/L (17-59); SGPT/ALT 16 U/L (0-50); SODIUM 135 mmol/L (137-145); Total Protein 6.8 g/dL (6.3-8.2)
[2022-10-28] MEDS ORDERED: Hydromorphone 1 mg/ml Injection IV ONE (11:30)
[2022-10-28] MEDS: PERIKABIVEN PERIPH TPN 1,920 ML with Vitamins For Infusion 10 ML INJECTION*** 10 ML, TR... IV SCH ×4 (15:54)
--- NOTE | 2022-10-28 17:31 | XRAY ---
Indication: Abdomen pain. Multiple contiguous axial images obtained through the abdomen and pelvis without contrast. Comparison: October 24 and October 25, 2022 Lung bases again demonstrates minimal bibasilar dependent atelectasis improved. Heart not enlarged. NG tube has been removed. Colon demonstrates residual enteric contrast. Stomach and noncontrasted small bowel loops remain nonobstructed. Previous duodenal wall thickening has resolved. Again normal appearing appendix, minimal sigmoid diverticulosis, nonobstructing bilateral renal micro-calculi, and tiny left renal cyst. No free fluid/air. Remaining liver, gallbladder, pancreas, spleen, adrenal glands, kidneys, ureters, bladder, and aorta are unremarkable for noncontrast exam. Impression: Again nonobstructing bilateral renal micro-calculi and tiny left renal cyst. Remaining CT abdomen/pelvis without contrast exam is negative.
[2022-10-29] MEDS: FLAGYL 500 MG IVPB 500 MG/100 ML BAG IV SCH ×4 (00:19→17:44)
[2022-10-29] MEDS: PIPERACILLIN/TAZOBACTAM 3.375 GM in Sodium Chloride 100ML MINI-BAG PLUS 100 ML IV SCH ×4 (01:09→19:30)
[2022-10-29 05:04] LABS: Hematocrit 43.9 % (42-50); Hemoglobin 14.5 g/dL (12.5-18.0); Mean Cell Volume 90.5 fL (78-100); Mean Corpuscular Hemoglobin 29.9 pg (26-32); Mean Platelet Volume 10.4 fL (7.5-11.0); Platelet Count 242 x10^3/uL (150-450); Red Blood Count 4.85 x10^6/uL (4.1-5.6); Red Cell Distribution Width 14.5 % (11.5-14.0); White Blood Count 7.8 x10^3/uL (4.0-10.5)
[2022-10-29 05:28] LABS: ALBUMIN 3.5 g/dL (3.5-5.0); ALKALINE PHOSPHATASE 43 U/L (38-126); ANION GAP 9.5 MEQ/L (5-15); BLOOD UREA NITROGEN 8 mg/dL (9-20); CHLORIDE 100 mmol/L (98-107); Calcium 8.4 mg/dL (8.4-10.2); Carbon Dioxide 32 mmol/L (22-30); Creatinine 1 0.52 mg/dL (0.66-1.25); EST GLOMERULAR FILTRATION RATE > 60.0 ML/MIN; Glucose 197 mg/dL (74-106); Potassium 3.8 mmol/L (3.5-5.1); SGOT/AST 17 U/L (17-59); SGPT/ALT 16 U/L (0-50); SODIUM 138 mmol/L (137-145); Total Protein 6.4 g/dL (6.3-8.2)
[2022-10-29] MEDS: PROTONIX 40 MG IV IV SCH (08:56)
[2022-10-29] MEDS: Pepcid 20 MG VIAL IV SCH ×2 (08:56→23:06)
[2022-10-29] MEDS: Cymbalta 30 MG Capsule PO SCH (08:56)
[2022-10-29] MEDS: Hydromorphone 1 mg/ml Injection SQ PRN ×2 (11:20→15:29)
[2022-10-29] MEDS: Sodium Chloride 0.9% 1000 ML 1,000 ML IV SCH ×2 (11:43→23:04)
[2022-10-29] MEDS: Zofran 4 MG/2 ML VIAL IV PRN (15:28)
[2022-10-29] MEDS: Compazine 10 MG/2 ML IV PRN ×2 (16:13→16:58)
[2022-10-29] MEDS: PERIKABIVEN PERIPH TPN 1,920 ML with Vitamins For Infusion 10 ML INJECTION*** 10 ML, TR... IV SCH ×4 (16:58)
[2022-10-29] MEDS: Hydromorphone 1 mg/ml Injection IV PRN (16:58)
[2022-10-29] MEDS ORDERED: Sodium Chloride 0.9% 500 ML 500 ML IV ONE (19:53)
[2022-10-29] MEDS ORDERED: PROTONIX 40 MG IV IV ONE (19:53)
[2022-10-29] MEDS: PROTONIX 40 MG IV*** 80 MG in Sodium Chloride 0.9% 500 ML 500 ML IV SCH (20:06)
[2022-10-29 20:29] LABS: ALBUMIN 3.5 g/dL (3.5-5.0); ALKALINE PHOSPHATASE 45 U/L (38-126); ANION GAP 8.8 MEQ/L (5-15); BLOOD UREA NITROGEN 7 mg/dL (9-20); CHLORIDE 99 mmol/L (98-107); Calcium 8.2 mg/dL (8.4-10.2); Carbon Dioxide 32 mmol/L (22-30); Creatinine 1 0.49 mg/dL (0.66-1.25); EST GLOMERULAR FILTRATION RATE > 60.0 ML/MIN; Glucose 161 mg/dL (74-106); Potassium 3.4 mmol/L (3.5-5.1); SGOT/AST 16 U/L (17-59); SGPT/ALT 16 U/L (0-50); SODIUM 136 mmol/L (137-145); Total Protein 6.3 g/dL (6.3-8.2)
--- NOTE | 2022-10-29 21:38 | XRAY ---
Indication: Abdomen pain, nausea, and vomiting. Multiple contiguous axial images obtained through the abdomen and pelvis using 80 cc Isovue 370 contrast. Comparison: October 24, October 25, and October 28, 2022. Lung bases again demonstrates minimal dependent atelectasis. Lateral right lower lobe now demonstrates a incompletely visualized solid nodule up to 1.5 cm unchanged with respect to CT low-dose lung screening exam August 18, 2022. Heart not enlarged. Noncontrasted stomach and bowel loops nonobstructed again with normal appendix. Stable minimal sigmoid diverticulosis, nonobstructing left renal micro-calculi, and tiny bilateral renal cysts. Remaining liver, gallbladder, pancreas, spleen, adrenal glands, kidneys, ureters, and bladder are unremarkable. Stable minimal aortic calcifications. No AAA or pathological retroperitoneal lymphadenopathy. Impression: 1. Grossly stable partially visualized suspicious right lower lobe nodule detailed on CT low-dose lung screening exam August,. 2. Stable sigmoid diverticulosis, tiny bilateral renal cysts, and nonobstructing left renal micro-calculi. 3. Remaining CT abdomen/pelvis continues to be negative.
[2022-10-30] MEDS: FLAGYL 500 MG IVPB 500 MG/100 ML BAG IV SCH ×4 (00:58→18:43)
[2022-10-30] MEDS: PIPERACILLIN/TAZOBACTAM 3.375 GM in Sodium Chloride 100ML MINI-BAG PLUS 100 ML IV SCH ×3 (00:58→14:47)
[2022-10-30] MEDS ORDERED: PROTONIX 40 MG IV IV ONE (04:46)
[2022-10-30] MEDS ORDERED: Sodium Chloride 0.9% 500 ML 500 ML IV ONE (04:47)
[2022-10-30] MEDS: PROTONIX 40 MG IV*** 80 MG in Sodium Chloride 0.9% 500 ML 500 ML IV SCH ×2 (05:54→18:42)
[2022-10-30 06:01] LABS: Absolute Neutrophil Ct (ANC) 6.74 x10^3/uL (1.4-6.9); BASOPHIL % 0.5 % (0.0-0.4); Basophil (Absolute #) 0.05 x10^3/uL (0-0.4); Eosinophil % 2.2 % (0.00-5.0); Hematocrit 42.1 % (42-50); IMMATURE GRAN # 0.02 x10^3u/L (0.00-0.03); IMMATURE GRAN % 0.2 % (0.00-0.4); Lymphocyte (Absolute #) 1.37 x10^3/uL (1.0-4.6); Lymphocytes % 14.9 % (24.0-44.0); Mean Cell Volume 90.1 fL (78-100); Mean Corpuscular Hgb Concent. 33.3 g/dL (32-36); Monocyte (Absolute #) 0.83 x10^3/uL (0.0-1.3); Neutrophil % 73.2 % (36.0-66.0); Platelet Count 226 x10^3/uL (150-450); Red Blood Count 4.67 x10^6/uL (4.1-5.6); Red Cell Distribution Width 14.3 % (11.5-14.0); White Blood Count 9.2 x10^3/uL (4.0-10.5)
[2022-10-30 06:26] LABS: ALBUMIN 3.3 g/dL (3.5-5.0); ALKALINE PHOSPHATASE 41 U/L (38-126); ANION GAP 8.7 MEQ/L (5-15); BLOOD UREA NITROGEN 6 mg/dL (9-20); CHLORIDE 101 mmol/L (98-107); Calcium 8.2 mg/dL (8.4-10.2); Carbon Dioxide 31 mmol/L (22-30); Creatinine 1 0.54 mg/dL (0.66-1.25); EST GLOMERULAR FILTRATION RATE > 60.0 ML/MIN; Glucose 173 mg/dL (74-106); MAGNESIUM 1.9 mg/dL (1.6-2.3); Potassium 3.3 mmol/L (3.5-5.1); SGOT/AST 17 U/L (17-59); SGPT/ALT 15 U/L (0-50); SODIUM 137 mmol/L (137-145); Total Protein 5.9 g/dL (6.3-8.2)
[2022-10-30 07:59] LABS: IFOB TEST RESULTS NEGATIVE (NEGATIVE)
--- NOTE | 2022-10-30 08:52 | PCM.NOTE ---
Date and Time: 10/30/22 0850 Subjective Assessment: last 24 hours events noted - Review of Systems Constitutional: No Fever, No Chills Eyes: No Symptoms Ears, Nose, & Throat: No Symptoms Respiratory: No Cough, No Short Of Breath Cardiac: No Chest Pain, No Edema, No Syncope Abdominal/Gastrointestinal: No Abdominal Pain, No Nausea, No Vomiting, No Diarrhea Genitourinary Symptoms: No Dysuria Musculoskeletal: No Back Pain, No Neck Pain Skin: No Rash Neurological: No Dizziness, No Focal Weakness, No Sensory Changes Psychological: No Symptoms Endocrine: No Symptoms Hematologic/Lymphatic: No Symptoms Immunological/Allergic: No Symptoms Objective Exam General Appearance: no apparent distress, alert Neurologic Exam: alert, oriented x 3, cooperative, normal mood/affect, nml cerebellar function, sensation nml, No motor deficits Skin Exam: normal color, warm, dry Eye Exam: PERRL, EOMI, eyes nml inspection Ears, Nose, Throat Exam: normal ENT inspection, pharynx normal, moist mucous membranes Neck Exam: normal inspection, non-tender, supple, full range of motion Respiratory Exam: normal breath sounds, lungs clear, No respiratory distress Cardiovascular Exam: regular rate/rhythm, normal heart sounds Gastrointestinal/Abdomen Exam: soft, No tenderness, No mass Extremity Exam: normal inspection, normal range of motion Back Exam: normal inspection, normal range of motion, No CVA tenderness, No vertebral tenderness Male Genitalia Exam: deferred Rectal Exam: deferred OBJECTIVE DATA Vital Signs: Vital Signs - 24 hr Temp Pulse Resp BP Pulse Ox 10/30/22 08:00 97.5 F 68 18 115/55 95 10/30/22 04:00 97.6 F 65 16 113/59 95 10/29/22 23:35 97.8 F 71 24 149/89 95 10/29/22 19:50 98.4 F 70 18 142/73 96 10/29/22 18:58 73 18 95 10/29/22 16:00 97.8 F 56 L 17 161/84 97 10/29/22 11:48 97.8 F 74 18 161/68 96 Pain Assessment - Last Documented Pain Intensity 0 Pain Scale Used 0-10 Pain Scale Intake and Output: Intake & Output 10/27/22 10/28/22 10/29/22 10/30/22 11:59 11:59 11:59 11:59 Intake Total 2521 1206 4198 2110 Output Total 200 1050 Balance 2521 1006 4198 1060 Weight 61.9 kg 61.9 kg 62.6 kg 62.6 kg Lab Results: Lab Results-Last 24 Hours 10/29/22 10/29/22 10/29/22 Range/Units 11:37 16:03 20:15 WBC (4.0-10.5) x10^3/uL RBC (4.1-5.6) x10^6/uL Hgb (12.5-18.0) g/dL Hct (42-50) % MCV (78-100) fL MCH (26-32) pg MCHC (32-36) g/dL RDW (11.5-14.0) % Plt Count (150-450) x10^3/uL MPV (7.5-11.0) fL Gran % (36.0-66.0) % Immature Gran % (Auto) (0.00-0.4) % Nucleat RBC Rel Count (0.00-0.1) % Eos # (Auto) (0-0.5) x10^3/uL Immature Gran # (Auto) (0.00-0.03) x10^3u/L Absolute Lymphs (auto) (1.0-4.6) x10^3/uL Absolute Monos (auto) (0.0-1.3) x10^3/uL Absolute Nucleated RBC (0.00-0.01) x10^3u/L Lymphocytes % (24.0-44.0) % Monocytes % (0.0-12.0) % Eosinophils % (0.00-5.0) % Basophils % (0.0-0.4) % Absolute Granulocytes (1.4-6.9) x10^3/uL Basophils # (0-0.4) x10^3/uL D-Dimer (0.0-0.50) mg/L Sodium 136 L (137-145) mmol/L Potassium 3.4 L (3.5-5.1) mmol/L Chloride 99 (98-107) mmol/L Carbon Dioxide 32 H (22-30) mmol/L Anion Gap 8.8 (5-15) MEQ/L BUN 7 L (9-20) mg/dL Creatinine 0.49 L (0.66-1.25) mg/dL Estimated GFR > 60.0 ML/MIN Glucose 161 H (74-106) mg/dL POC Glucometer 187 H 182 H (74 to 106) mg/dL Calcium 8.2 L (8.4-10.2) mg/dL Magnesium (1.6-2.3) mg/dL Total Bilirubin 0.50 (0.2-1.3) mg/dL AST 16 L (17-59) U/L ALT 16 (0-50) U/L Alkaline Phosphatase 45 (38-126) U/L Serum Total Protein 6.3 (6.3-8.2) g/dL Albumin 3.5 (3.5-5.0) g/dL Stl Occult Blood (IFOB) (NEGATIVE) 10/29/22 10/29/22 10/30/22 Range/Units 20:15 21:00 00:07 WBC (4.0-10.5) x10^3/uL RBC (4.1-5.6) x10^6/uL Hgb (12.5-18.0) g/dL Hct (42-50) % MCV (78-100) fL MCH (26-32) pg MCHC (32-36) g/dL RDW (11.5-14.0) % Plt Count (150-450) x10^3/uL MPV (7.5-11.0) fL Gran % (36.0-66.0) % Immature Gran % (Auto) (0.00-0.4) % Nucleat RBC Rel Count (0.00-0.1) % Eos # (Auto) (0-0.5) x10^3/uL Immature Gran # (Auto) (0.00-0.03) x10^3u/L Absolute Lymphs (auto) (1.0-4.6) x10^3/uL Absolute Monos (auto) (0.0-1.3) x10^3/uL Absolute Nucleated RBC (0.00-0.01) x10^3u/L Lymphocytes % (24.0-44.0) % Monocytes % (0.0-12.0) % Eosinophils % (0.00-5.0) % Basophils % (0.0-0.4) % Absolute Granulocytes (1.4-6.9) x10^3/uL Basophils # (0-0.4) x10^3/uL D-Dimer 0.46 (0.0-0.50) mg/L Sodium (137-145) mmol/L Potassium (3.5-5.1) mmol/L Chloride (98-107) mmol/L Carbon Dioxide (22-30) mmol/L Anion Gap (5-15) MEQ/L BUN (9-20) mg/dL Creatinine (0.66-1.25) mg/dL Estimated GFR ML/MIN Glucose (74-106) mg/dL POC Glucometer 150 H 105 (74 to 106) mg/dL Calcium (8.4-10.2) mg/dL Magnesium (1.6-2.3) mg/dL Total Bilirubin (0.2-1.3) mg/dL AST (17-59) U/L ALT (0-50) U/L Alkaline Phosphatase (38-126) U/L Serum Total Protein (6.3-8.2) g/dL Albumin (3.5-5.0) g/dL Stl Occult Blood (IFOB) (NEGATIVE) 10/30/22 10/30/22 10/30/22 Range/Units 03:54 05:57 05:57 WBC 9.2 (4.0-10.5) x10^3/uL RBC 4.67 (4.1-5.6) x10^6/uL Hgb 14.0 (12.5-18.0) g/dL Hct 42.1 (42-50) % MCV 90.1 (78-100) fL MCH 30.0 (26-32) pg MCHC 33.3 (32-36) g/dL RDW 14.3 H (11.5-14.0) % Plt Count 226 (150-450) x10^3/uL MPV 10.0 (7.5-11.0) fL Gran % 73.2 H (36.0-66.0) % Immature Gran % (Auto) 0.2 (0.00-0.4) % Nucleat RBC Rel Count 0.0 (0.00-0.1) % Eos # (Auto) 0.20 (0-0.5) x10^3/uL Immature Gran # (Auto) 0.02 (0.00-0.03) x10^3u/L Absolute Lymphs (auto) 1.37 (1.0-4.6) x10^3/uL Absolute Monos (auto) 0.83 (0.0-1.3) x10^3/uL Absolute Nucleated RBC 0.00 (0.00-0.01) x10^3u/L Lymphocytes % 14.9 L (24.0-44.0) % Monocytes % 9.0 (0.0-12.0) % Eosinophils % 2.2 (0.00-5.0) % Basophils % 0.5 (0.0-0.4) % Absolute Granulocytes 6.74 (1.4-6.9) x10^3/uL Basophils # 0.05 (0-0.4) x10^3/uL D-Dimer (0.0-0.50) mg/L Sodium 137 (137-145) mmol/L Potassium 3.3 L (3.5-5.1) mmol/L Chloride 101 (98-107) mmol/L Carbon Dioxide 31 H (22-30) mmol/L Anion Gap 8.7 (5-15) MEQ/L BUN 6 L (9-20) mg/dL Creatinine 0.54 L (0.66-1.25) mg/dL Estimated GFR > 60.0 ML/MIN Glucose 173 H (74-106) mg/dL POC Glucometer 132 H (74 to 106) mg/dL Calcium 8.2 L (8.4-10.2) mg/dL Magnesium 1.9 (1.6-2.3) mg/dL Total Bilirubin 0.60 (0.2-1.3) mg/dL AST 17 (17-59) U/L ALT 15 (0-50) U/L Alkaline Phosphatase 41 (38-126) U/L Serum Total Protein 5.9 L (6.3-8.2) g/dL Albumin 3.3 L (3.5-5.0) g/dL Stl Occult Blood (IFOB) (NEGATIVE) 10/30/22 10/30/22 Range/Units 07:16 07:46 WBC (4.0-10.5) x10^3/uL RBC (4.1-5.6) x10^6/uL Hgb (12.5-18.0) g/dL Hct (42-50) % MCV (78-100) fL MCH (26-32) pg MCHC (32-36) g/dL RDW (11.5-14.0) % Plt Count (150-450) x10^3/uL MPV (7.5-11.0) fL Gran % (36.0-66.0) % Immature Gran % (Auto) (0.00-0.4) % Nucleat RBC Rel Count (0.00-0.1) % Eos # (Auto) (0-0.5) x10^3/uL Immature Gran # (Auto) (0.00-0.03) x10^3u/L Absolute Lymphs (auto) (1.0-4.6) x10^3/uL Absolute Monos (auto) (0.0-1.3) x10^3/uL Absolute Nucleated RBC (0.00-0.01) x10^3u/L Lymphocytes % (24.0-44.0) % Monocytes % (0.0-12.0) % Eosinophils % (0.00-5.0) % Basophils % (0.0-0.4) % Absolute Granulocytes (1.4-6.9) x10^3/uL Basophils # (0-0.4) x10^3/uL D-Dimer (0.0-0.50) mg/L Sodium (137-145) mmol/L Potassium (3.5-5.1) mmol/L Chloride (98-107) mmol/L Carbon Dioxide (22-30) mmol/L Anion Gap (5-15) MEQ/L BUN (9-20) mg/dL Creatinine (0.66-1.25) mg/dL Estimated GFR ML/MIN Glucose (74-106) mg/dL POC Glucometer 166 H (74 to 106) mg/dL Calcium (8.4-10.2) mg/dL Magnesium (1.6-2.3) mg/dL Total Bilirubin (0.2-1.3) mg/dL AST (17-59) U/L ALT (0-50) U/L Alkaline Phosphatase (38-126) U/L Serum Total Protein (6.3-8.2) g/dL Albumin (3.5-5.0) g/dL Stl Occult Blood (IFOB) NEGATIVE (NEGATIVE) Radiology Exams: Radiology Procedures Category Date Time Status ABDOMEN AND PELVIS W CONTRAST [CT] Stat Exams 10/29/22 19:48 Completed ABDOMEN AND PELVIS W/0 CONTRAS [CT] Routine Exams 10/28/22 09:11 Completed GALLBLADDER [US] Routine Exams 11/01/22 08:00 Ordered Multi-Disciplinary Progress Notes: Multi-Disciplinary Progress Notes 10/29/22 11:17 Case Management Note by Karen Peng S/W PATIENT AND - HE CONTINUES TO DENY ANY NEW NEEDS AT TIME OF DC. HE PLANS TO RETURN HOME TO HIS PLF AT TIME OF DC Initialized on 10/29/22 11:17 - END OF NOTE Assessment/Plan (1) Duodenitis Current Visit: Yes Status: Acute Code(s): K29.80 - DUODENITIS WITHOUT BLEEDING (2) DM2 (diabetes mellitus, type 2) Current Visit: Yes Status: Chronic (3) Abdominal pain Current Visit: No Status: Acute Code(s): R10.9 - UNSPECIFIED ABDOMINAL PAIN
[2022-10-30] MEDS: Cymbalta 30 MG Capsule PO SCH (08:57)
[2022-10-30] MEDS: Pepcid 20 MG VIAL IV SCH ×2 (08:57→21:11)
[2022-10-30] MEDS ORDERED: Klor Con PO SCH (11:00)
[2022-10-30] MEDS ORDERED: Lactated Ringers 1,000 ML IV ONE ×2 (11:28→11:57)
[2022-10-30] MEDS ORDERED: Xylocaine-Mpf 2% 5 Ml Vial ONE (12:07)
[2022-10-30] MEDS ORDERED: DIPRIVAN 200 MG/20 ML IV ONE (12:07)
[2022-10-30] MEDS: Klor Con PO SCH ×4 (13:55→21:11)
[2022-10-30] MEDS ORDERED: PERIKABIVEN PERIPH TPN 1,920 ML with Vitamins For Infusion 10 ML INJECTION*** 10 ML, TR... IV SCH ×3 (15:15)
[2022-10-30] MEDS: Hydromorphone 1 mg/ml Injection SQ PRN ×2 (15:41→20:19)
[2022-10-30] MEDS: Sodium Chloride 0.9% 1000 ML 1,000 ML IV SCH (21:10)
[2022-10-30] MEDS: Diflucan 100 MG PO SCH (21:11)
[2022-10-31] MEDS: FLAGYL 500 MG IVPB 500 MG/100 ML BAG IV SCH ×5 (00:06→23:48)
[2022-10-31] MEDS: PROTONIX 40 MG IV*** 80 MG in Sodium Chloride 0.9% 500 ML 500 ML IV SCH ×3 (01:50→22:28)
[2022-10-31 03:13] LABS: ALBUMIN 3.1 g/dL (3.5-5.0); ALKALINE PHOSPHATASE 36 U/L (38-126); BLOOD UREA NITROGEN 6 mg/dL (9-20); CHLORIDE 103 mmol/L (98-107); Calcium 7.9 mg/dL (8.4-10.2); Carbon Dioxide 28 mmol/L (22-30); Creatinine 1 0.47 mg/dL (0.66-1.25); EST GLOMERULAR FILTRATION RATE > 60.0 ML/MIN; Glucose 176 mg/dL (74-106); MAGNESIUM 1.9 mg/dL (1.6-2.3); Potassium 3.9 mmol/L (3.5-5.1); SGOT/AST 15 U/L (17-59); SGPT/ALT 14 U/L (0-50); SODIUM 136 mmol/L (137-145); Total Protein 5.6 g/dL (6.3-8.2)
--- NOTE | 2022-10-31 08:18 | PCM.NOTE ---
Date and Time: 10/31/22816 Subjective Assessment: doing better - Review of Systems Constitutional: No Fever, No Chills Eyes: No Symptoms Ears, Nose, & Throat: No Symptoms Respiratory: No Cough, No Short Of Breath Cardiac: No Chest Pain, No Edema, No Syncope Abdominal/Gastrointestinal: No Abdominal Pain, No Nausea, No Vomiting, No Diarrhea Genitourinary Symptoms: No Dysuria Musculoskeletal: No Back Pain, No Neck Pain Skin: No Rash Neurological: No Dizziness, No Focal Weakness, No Sensory Changes Psychological: No Symptoms Endocrine: No Symptoms Hematologic/Lymphatic: No Symptoms Immunological/Allergic: No Symptoms Objective Exam General Appearance: no apparent distress, alert Neurologic Exam: alert, oriented x 3, cooperative, normal mood/affect, nml cerebellar function, sensation nml, No motor deficits Skin Exam: normal color, warm, dry Eye Exam: PERRL, EOMI, eyes nml inspection Ears, Nose, Throat Exam: normal ENT inspection, pharynx normal, moist mucous membranes Neck Exam: normal inspection, non-tender, supple, full range of motion Respiratory Exam: normal breath sounds, lungs clear, No respiratory distress Cardiovascular Exam: regular rate/rhythm, normal heart sounds Gastrointestinal/Abdomen Exam: soft, No tenderness, No mass Extremity Exam: normal inspection, normal range of motion Back Exam: normal inspection, normal range of motion, No CVA tenderness, No vertebral tenderness Male Genitalia Exam: deferred Rectal Exam: deferred OBJECTIVE DATA Vital Signs: Vital Signs - 24 hr Temp Pulse Resp BP Pulse Ox 10/31/22 07:10 98.0 F 72 18 126/65 95 10/31/22 03:50 97.5 F 69 18 104/60 96 10/30/22 23:59 97.0 F 75 20 140/67 95 10/30/22 20:33 87 20 96 10/30/22 19:54 97.9 F 76 20 145/72 96 10/30/22 16:00 97.3 F 73 19 129/63 95 10/30/22 11:46 97.5 F 76 19 119/61 98 10/30/22 11:43 71 18 115/55 96 10/30/22 09:06 71 18 96 Pain Assessment - Last Documented Pain Intensity 0 Pain Scale Used 0-10 Pain Scale Intake and Output: Intake & Output 10/28/22 10/29/22 10/30/22 10/31/22 11:59 11:59 11:59 11:59 Intake Total 1206 4193 2112 4601 Output Total 200 1050 2000 Balance 1006 4198 1060 3661 Weight 61.9 kg 62.6 kg 62.6 kg 60.9 kg Lab Results: Lab Results-Last 24 Hours 10/30/22 10/30/22 10/30/22 Range/Units 11:33 15:57 18:15 Sodium (137-145) mmol/L Potassium 3.8 (3.5-5.1) mmol/L Chloride (98-107) mmol/L Carbon Dioxide (22-30) mmol/L Anion Gap (5-15) MEQ/L BUN (9-20) mg/dL Creatinine (0.66-1.25) mg/dL Estimated GFR ML/MIN Glucose (74-106) mg/dL POC Glucometer 172 H 171 H (74 to 106) mg/dL Calcium (8.4-10.2) mg/dL Magnesium (1.6-2.3) mg/dL Total Bilirubin (0.2-1.3) mg/dL AST (17-59) U/L ALT (0-50) U/L Alkaline Phosphatase (38-126) U/L Serum Total Protein (6.3-8.2) g/dL Albumin (3.5-5.0) g/dL 10/30/22 10/31/22 10/31/22 Range/Units 21:31 02:34 06:35 Sodium 136 L (137-145) mmol/L Potassium 3.9 (3.5-5.1) mmol/L Chloride 103 (98-107) mmol/L Carbon Dioxide 28 (22-30) mmol/L Anion Gap 8.0 (5-15) MEQ/L BUN 6 L (9-20) mg/dL Creatinine 0.47 L (0.66-1.25) mg/dL Estimated GFR > 60.0 ML/MIN Glucose 176 H (74-106) mg/dL POC Glucometer 187 H 189 H (74 to 106) mg/dL Calcium 7.9 L (8.4-10.2) mg/dL Magnesium 1.9 (1.6-2.3) mg/dL Total Bilirubin 0.40 (0.2-1.3) mg/dL AST 15 L (17-59) U/L ALT 14 (0-50) U/L Alkaline Phosphatase 36 L (38-126) U/L Serum Total Protein 5.6 L (6.3-8.2) g/dL Albumin 3.1 L (3.5-5.0) g/dL Radiology Exams: Radiology Procedures Category Date Time Status ABDOMEN AND PELVIS W CONTRAST [CT] Stat Exams 10/29/22 19:48 Completed GALLBLADDER [US] Routine Exams 11/01/22 08:00 Ordered Assessment/Plan (1) Duodenitis Current Visit: Yes Status: Resolved Code(s): K29.80 - DUODENITIS WITHOUT BLEEDING (2) DM2 (diabetes mellitus, type 2) Current Visit: Yes Status: Chronic Qualifiers: Diabetes mellitus care home insulin use: unspecified director engineering insulin use status Diabetes mellitus complication status: with hyperglycemia Qualified Code(s): E11.65 - Type 2 diabetes mellitus with hyperglycemia (3) Abdominal pain Current Visit: No Status: Acute Code(s): R10.9 - UNSPECIFIED ABDOMINAL PAIN
[2022-10-31] MEDS: Hydromorphone 1 mg/ml Injection SQ PRN ×2 (09:35→15:45)
[2022-10-31] MEDS: Pepcid 20 MG VIAL IV SCH ×2 (09:36→22:23)
[2022-10-31] MEDS: Cymbalta 30 MG Capsule PO SCH (09:36)
[2022-10-31] MEDS: Diflucan 100 MG PO SCH (09:36)
[2022-10-31] MEDS: Sodium Chloride 0.9% 1000 ML 1,000 ML IV SCH (15:37)
[2022-11-01 04:44] LABS: Absolute Neutrophil Ct (ANC) 6.93 x10^3/uL (1.4-6.9); BASOPHIL % 0.4 % (0.0-0.4); Basophil (Absolute #) 0.04 x10^3/uL (0-0.4); Eosinophil % 2.8 % (0.00-5.0); Eosinophil (Absolute #) 0.26 x10^3/uL (0-0.5); Hematocrit 41.5 % (42-50); IMMATURE GRAN # 0.03 x10^3u/L (0.00-0.03); IMMATURE GRAN % 0.3 % (0.00-0.4); Lymphocyte (Absolute #) 1.26 x10^3/uL (1.0-4.6); Lymphocytes % 13.3 % (24.0-44.0); Mean Cell Volume 90.2 fL (78-100); Mean Corpuscular Hemoglobin 30.4 pg (26-32); Mean Corpuscular Hgb Concent. 33.7 g/dL (32-36); Mean Platelet Volume 10.8 fL (7.5-11.0); Monocyte (Absolute #) 0.93 x10^3/uL (0.0-1.3); Monocytes % 9.8 % (0.0-12.0); Neutrophil % 73.4 % (36.0-66.0); Platelet Count 248 x10^3/uL (150-450); Red Cell Distribution Width 14.8 % (11.5-14.0); White Blood Count 9.5 x10^3/uL (4.0-10.5)
[2022-11-01 05:08] LABS: ALBUMIN 3.5 g/dL (3.5-5.0); ALKALINE PHOSPHATASE 44 U/L (38-126); ANION GAP 11.9 MEQ/L (5-15); BLOOD UREA NITROGEN 4 mg/dL (9-20); CHLORIDE 104 mmol/L (98-107); Calcium 8.4 mg/dL (8.4-10.2); Carbon Dioxide 27 mmol/L (22-30); Creatinine 1 0.51 mg/dL (0.66-1.25); EST GLOMERULAR FILTRATION RATE > 60.0 ML/MIN; Glucose 119 mg/dL (74-106); MAGNESIUM 1.8 mg/dL (1.6-2.3); Potassium 3.7 mmol/L (3.5-5.1); SGOT/AST 18 U/L (17-59); SGPT/ALT 16 U/L (0-50); SODIUM 138 mmol/L (137-145); Total Protein 6.3 g/dL (6.3-8.2)
[2022-11-01] MEDS: FLAGYL 500 MG IVPB 500 MG/100 ML BAG IV SCH ×2 (05:49→14:36)
[2022-11-01] MEDS: Cymbalta 30 MG Capsule PO SCH ×2 (08:35→08:41)
[2022-11-01] MEDS: Pepcid 20 MG VIAL IV SCH (08:35)
[2022-11-01] MEDS: Diflucan 100 MG PO SCH ×2 (08:36→08:41)
[2022-11-01] MEDS: Sodium Chloride 0.9% 1000 ML 1,000 ML IV SCH (08:42)
--- NOTE | 2022-11-01 10:18 | XRAY ---
Indication: Abdomen pain and vomiting. Two-dimensional gallbladder sonogram performed. Comparison: None Pancreas not well-seen due to overlying bowel gas. Visualized gallbladder normally distended without gallstones, wall thickening, or pericholecystic fluid. Common bile duct measures 3.8 mm. No intrahepatic biliary distention. Remaining visualized liver sonographically unremarkable. Right kidney measures 11.4 cm in length and demonstrates 1.1 cm lower pole cyst. Impression: Nonvisualization pancreas. Right renal cyst. Remaining gallbladder sonogram is negative.
[2022-11-01 12:07] VITALS: BP 144/81; PULSE 76; O2SAT 98
--- NOTE | 2022-11-01 13:22 | PCM.DCORD ---
- Discharge Disposition: Home, Self-Care Condition: Stable Prescriptions: New Fluconazole 100 mg [Diflucan 100 MG] 100 mg PO DAILY #7 tablet No Action Famotidine 20 mg [Pepcid 20 MG] 20 mg PO DAILY Dapagliflozin Propanediol [Farxiga] 1 ea PO DAILY Duloxetine HCl 30 mg [Cymbalta 30 MG Capsule] 30 mg PO DAILY Ondansetron ODT 4 MG [Zofran Odt 4 mg] 4 mg PO Q6H PRN PRN #10 tablet PRN Reason: Vomiting PANTOPRAZOLE 40 mg Tablet [Protonix 40MG Tablet] 40 mg PO DAILY Metformin HCl 500 mg [Glucophage 500 MG] 750 mg PO BID Follow up with: JENNI ROCHA MD [Primary Care Provider] - MANJU DENSON [ACTIVE STAFF] - (FOLLOW UP [facility], 10 DAYS)
--- NOTE | 2022-11-01 13:28 | PCM.DS ---
Discharge Summary Date of Admission: 10/25/22 13:35 Date of Discharge: 11/01/22 Admitting Physician: JENNI ROCHA Primary Care Provider: JENNI ROCHA Allergies Allergies codeine Allergy (Verified 10/24/22 16:52) [facility] Summary - Vitals & Intake/Output Vital Signs: Vital Signs Temperature 98.7 F 11/01/22 12:00 Pulse Rate 76 11/01/22 12:00 Respiratory Rate 17 11/01/22 12:00 Blood Pressure 144/81 11/01/22 12:00 O2 Sat by Pulse Oximetry 98 11/01/22 12:00 Intake & Output: Intake & Output 10/30/22 10/31/22 11/01/22 11/02/22 11:59 11:59 11:59 11:59 Intake Total 2110 4643 2262 Output Total 1050 1999 2325 Balance 1060 2631 -63 Weight 62.6 kg 60.9 kg 60.9 kg - Lab Result Diagrams: 11/01/22 04:15 11/01/22 04:15 Lab Results-Last 24 Hrs: Lab Results-Last 24 Hours 10/31/22 10/31/22 11/01/22 Range/Units 15:42 21:17 04:15 WBC (4.0-10.5) x10^3/uL RBC (4.1-5.6) x10^6/uL Hgb (12.5-18.0) g/dL Hct (42-50) % MCV (78-100) fL MCH (26-32) pg MCHC (32-36) g/dL RDW (11.5-14.0) % Plt Count (150-450) x10^3/uL MPV (7.5-11.0) fL Gran % (36.0-66.0) % Immature Gran % (Auto) (0.00-0.4) % Nucleat RBC Rel Count (0.00-0.1) % Eos # (Auto) (0-0.5) x10^3/uL Immature Gran # (Auto) (0.00-0.03) x10^3u/L Absolute Lymphs (auto) (1.0-4.6) x10^3/uL Absolute Monos (auto) (0.0-1.3) x10^3/uL Absolute Nucleated RBC (0.00-0.01) x10^3u/L Lymphocytes % (24.0-44.0) % Monocytes % (0.0-12.0) % Eosinophils % (0.00-5.0) % Basophils % (0.0-0.4) % Absolute Granulocytes (1.4-6.9) x10^3/uL Basophils # (0-0.4) x10^3/uL Sodium 138 (137-145) mmol/L Potassium 3.7 (3.5-5.1) mmol/L Chloride 104 (98-107) mmol/L Carbon Dioxide 27 (22-30) mmol/L Anion Gap 11.9 (5-15) MEQ/L BUN 4 L (9-20) mg/dL Creatinine 0.51 L (0.66-1.25) mg/dL Estimated GFR > 60.0 ML/MIN Glucose 119 H (74-106) mg/dL POC Glucometer 152 H 120 H (74 to 106) mg/dL Calcium 8.4 (8.4-10.2) mg/dL Magnesium 1.8 (1.6-2.3) mg/dL Total Bilirubin 0.70 (0.2-1.3) mg/dL AST 18 (17-59) U/L ALT 16 (0-50) U/L Alkaline Phosphatase 44 (38-126) U/L Serum Total Protein 6.3 (6.3-8.2) g/dL Albumin 3.5 (3.5-5.0) g/dL 11/01/22 11/01/22 11/01/22 Range/Units 04:15 07:07 11:51 WBC 9.5 (4.0-10.5) x10^3/uL RBC 4.60 (4.1-5.6) x10^6/uL Hgb 14.0 (12.5-18.0) g/dL Hct 41.5 L (42-50) % MCV 90.2 (78-100) fL MCH 30.4 (26-32) pg MCHC 33.7 (32-36) g/dL RDW 14.8 H (11.5-14.0) % Plt Count 248 (150-450) x10^3/uL MPV 10.8 (7.5-11.0) fL Gran % 73.4 H (36.0-66.0) % Immature Gran % (Auto) 0.3 (0.00-0.4) % Nucleat RBC Rel Count 0.0 (0.00-0.1) % Eos # (Auto) 0.26 (0-0.5) x10^3/uL Immature Gran # (Auto) 0.03 (0.00-0.03) x10^3u/L Absolute Lymphs (auto) 1.26 (1.0-4.6) x10^3/uL Absolute Monos (auto) 0.93 (0.0-1.3) x10^3/uL Absolute Nucleated RBC 0.00 (0.00-0.01) x10^3u/L Lymphocytes % 13.3 L (24.0-44.0) % Monocytes % 9.8 (0.0-12.0) % Eosinophils % 2.8 (0.00-5.0) % Basophils % 0.4 (0.0-0.4) % Absolute Granulocytes 6.93 H (1.4-6.9) x10^3/uL Basophils # 0.04 (0-0.4) x10^3/uL Sodium (137-145) mmol/L Potassium (3.5-5.1) mmol/L Chloride (98-107) mmol/L Carbon Dioxide (22-30) mmol/L Anion Gap (5-15) MEQ/L BUN (9-20) mg/dL Creatinine (0.66-1.25) mg/dL Estimated GFR ML/MIN Glucose (74-106) mg/dL POC Glucometer 140 H 137 H (74 to 106) mg/dL Calcium (8.4-10.2) mg/dL Magnesium (1.6-2.3) mg/dL Total Bilirubin (0.2-1.3) mg/dL AST (17-59) U/L ALT (0-50) U/L Alkaline Phosphatase (38-126) U/L Serum Total Protein (6.3-8.2) g/dL Albumin (3.5-5.0) g/dL Micro Results-Entire Visit: Microbiology 10/24/22 19:56 Urine Culture - Final Urine, Void <10K NORMAL SKIN NATALIIA PROBABLE SKIN CONTAMINANT Accuchecks Date 11/01/22 Date 11/01/22 Date 10/31/22 Time 12:05 Time 07:28 Time 16:01 - Radiology Exams Ordered Rad Exams-Entire Visit: Radiology Procedures Category Date Time Status GALLBLADDER [US] Routine Exams 11/01/22 08:00 Completed - Procedures and Test Procedures and Tests throughout Hospitalization: Therapy Orders & Screens 10/24/22 16:46 Oxygen Nasal Cannula 2 lpm Comment: prn Diagnosis: Small bowel obstruction Respiratory Therapy Assessment DAILY Comment: Diagnosis: Small bowel obstruction Final Diagnosis/Problem List - Final Discharge Diagnosis/Problem (1) Leukocytosis Current Visit: Yes Status: Resolved Code(s): D72.829 - ELEVATED WHITE BLOOD CELL COUNT, UNSPECIFIED (2) Duodenitis Current Visit: Yes Status: Resolved Code(s): K29.80 - DUODENITIS WITHOUT BLEEDING (3) Small bowel obstruction Current Visit: Yes Status: Resolved Code(s): K56.609 - UNSP INTESTNL OBST, UNSP TO PARTIAL VERSUS COMPLETE OBST - Discharge Disposition: Home, Self-Care Condition: Stable Prescriptions: New Fluconazole 100 mg [Diflucan 100 MG] 100 mg PO DAILY #7 tablet No Action Famotidine 20 mg [Pepcid 20 MG] 20 mg PO DAILY Dapagliflozin Propanediol [Farxiga] 1 ea PO DAILY Duloxetine HCl 30 mg [Cymbalta 30 MG Capsule] 30 mg PO DAILY Ondansetron ODT 4 MG [Zofran Odt 4 mg] 4 mg PO Q6H PRN PRN #10 tablet PRN Reason: Vomiting PANTOPRAZOLE 40 mg Tablet [Protonix 40MG Tablet] 40 mg PO DAILY Metformin HCl 500 mg [Glucophage 500 MG] 750 mg PO BID Follow up with: JENNI ROCHA MD [Primary Care Provider] - MANJU DENSON [ACTIVE STAFF] - (FOLLOW UP [facility], 10 DAYS)
--- NOTE | 2022-11-01 15:39 | OP ---
SURGERY DATE/TIME: 10/30/2022 1204 PREOPERATIVE DIAGNOSIS: Possible duodenal abnormality by x-ray and clinically. POSTOPERATIVE DIAGNOSIS: He has grade 2 over 4 gastroesophageal reflux disease. He has a slightly thickened ampullary papilla. There are no masses or obstruction seen on the duodenum. PROCEDURE: EGD. SURGEON: Cecil Glover M.D. ANESTHESIA: MAC. COMPLICATIONS: None. CONDITION: Stable. INDICATION: The patient has severe pressure of the esophagus. DESCRIPTION OF PROCEDURE: The patient is taken to endoscopy. MAC sedation provided. Scope introduced. In the pharyngoesophageal junction all the way down to the gastroesophageal junction, grade 2 gastroesophageal reflux disease. No hiatal hernia. Fundus, body, antrum satisfactory. Pylorus satisfactory. Duodenal bulb satisfactory. Ampullary area just slight hypertrophy, sales representative trainee biopsy. No obstruction. No suggestion of obstruction. The patient tolerated the procedure satisfactory. Scope withdrawn.
== END 2022-11-01 14:14 | disposition home or self-care (01) | DRG 389 ==
LOC: ED 11:08 → MED SURG 16:03 → OBSVTOIN 10-25 13:35
PROVIDERS: ADMIT Family Medicine; ATTEND Family Medicine
PROC: 0DJ08ZZ Inspection of Upper Intestinal Tract, Via Natural or Artificial Opening Endoscopic (ICD-10-PCS; principal; 2022-10-30)
DX: K56.609 Unspecified intestinal obstruction, unspecified as to partial versus complete obstruction (principal); C34.90 Malignant neoplasm of unspecified part of unspecified bronchus or lung; D72.829 Elevated white blood cell count, unspecified; K29.80 Duodenitis without bleeding; K21.9 Gastro-esophageal reflux disease without esophagitis; R10.9 Unspecified abdominal pain; E11.65 Type 2 diabetes mellitus with hyperglycemia; Z79.899 Other long term (current) drug therapy; Z20.828 Contact with and (suspected) exposure to other viral communicable diseases
CPT/HCPCS: 00731; 36000; 36410; 36415; 43235; 70450; 71045; 72125; 74176; 74177; 76705; 76942; 80048; 80053; 81001; 82150; 82947; 83036; 83605; 83690; 83735; 84132; 84484; 85025; 85027; 85379; 87086; 88305; 94760; 94762; 96360; 96374; 96375; 99140; 99285; G0328; G0378; 82274; J1170; J1817; J2405; J2704; A9270-GY

== ENCOUNTER 2023-06-02 07:20 | Day surgery (SDC) | payer MEDICARE ==
--- NOTE | 2023-06-01 11:33 | HP ---
DATE OF SURGERY: 06/02/2023 HISTORY OF PRESENT ILLNESS: The patient is a 62-year-old male presented for endoscopy. The patient has been established with Dr. Arsenio Glover for a right lung nodule. He had a colonoscopy about three years ago with no findings. He has been having some hard stools and stools have been painful to pass. No history of abdominal surgery. He did state that his dad had colorectal cancer before the age of 60. He did have a PET scan here recently show some diverticulosis, colitis and recommended a follow up colonoscopy. PAST MEDICAL HISTORY: Lung nodule. Diabetes. Asthma. Gastroesophageal reflux disease. Diverticulosis. Lung cancer. PAST SURGICAL HISTORY: Exploratory laparotomy. Lung biopsy. Left shoulder surgery. Hernia repair. Brain surgery. EGD. Colonoscopy. ALLERGIES: CODEINE. MEDICATIONS: Duloxetine, Ventolin, B12, Zofran, Pepcid, atorvastatin, Farxiga, Symbicort, metformin, cyclobenzaprine, loratadine, aspirin, albuterol. FAMILY HISTORY: Diabetes, prostate cancer. SOCIAL HISTORY: Former smoker, occasional alcohol. REVIEW OF SYSTEMS: CONSTITUTIONAL: Denies fever or chills. CHEST: Denies shortness of breath. CVS: Denies chest pain. ABDOMEN: Denies abdominal pain. PHYSICAL EXAMINATION: GENERAL: No acute distress. CHEST: Nonlabored. No shortness of breath. CVS: Regular rate and rhythm. ABDOMEN: Soft. IMPRESSION: Family history of colon cancer, abnormal PET scan showing colitis, diverticulitis of the colon. PLAN: Colonoscopy with Dr. Cecil Glover. As dictated by Leigh Mac NP.
[2023-06-02] MEDS ORDERED: Lactated Ringers 1,000 ML IV SCH (07:30)
[2023-06-02 07:58] VITALS: RESP 18
[2023-06-02] MEDS ORDERED: Lactated Ringers 1,000 ML IV ONE (07:59)
[2023-06-02 08:17] LABS: Hematocrit 40.9 % (42-50); Hemoglobin 13.5 g/dL (12.5-18.0); Mean Cell Volume 92.1 fL (78-100); Mean Corpuscular Hemoglobin 30.4 pg (26-32); Mean Platelet Volume 10.3 fL (7.5-11.0); Platelet Count 232 x10^3/uL (150-450); Red Blood Count 4.44 x10^6/uL (4.1-5.6); Red Cell Distribution Width 14.4 % (11.5-14.0); White Blood Count 6.7 x10^3/uL (4.0-10.5)
[2023-06-02] MEDS ORDERED: DIPRIVAN 200 MG/20 ML IV ONE (09:08)
[2023-06-02] MEDS ORDERED: Xylocaine-Mpf 2% 5 Ml Vial ONE (09:08)
[2023-06-02] MEDS ORDERED: Ephedrine Sulfate 50 MG/ML ONE (09:44)
[2023-06-02 10:03] VITALS: TEMP 98.2
[2023-06-02 10:17] VITALS: BP 134/64; PULSE 82; O2SAT 96
--- NOTE | 2023-06-02 10:19 | OP ---
SURGERY DATE/TIME: 06/02/2023 0935 PREOPERATIVE DIAGNOSES: 1) Family history of colon cancer screening. 2) PET scan showing thickening of the colon. POSTOPERATIVE DIAGNOSIS: Polypectomy x1, otherwise satisfactory. PROCEDURES: 1) Colonoscopy to cecum. 2) Hot polypectomy x1 mid ascending colon. SURGEON: Cecil Glover M.D. ANESTHESIA: MAC. COMPLICATIONS: None. CONDITION: Stable. INDICATION: The patient had dysphagia and PET scan with some thickening in the colon light up. He also has family history of colon cancer. There was concern about a lung nodule. He has not had a recent colonoscopic examination. He is admitted for such. DESCRIPTION OF PROCEDURE: He is taken to endoscopy. Left lateral decubitus position. Satisfactory MAC anesthetic. Finger examination the prostate is fairly atrophic, just barely palpable. Scope advanced. Scope advanced to the cecum. Base of the cecum, ileocecal valve is normal. Ascending colon, mid ascending 1 cm polyp was taken with hot biopsy to extinction. Hepatic flexure, transverse colon, splenic flexure, descending, sigmoid, rectum, anus was satisfactory.
== END 2023-06-02 10:23 | disposition home or self-care (01) ==
LOC: SDC 07:20
PROVIDERS: ATTEND Surgery
DX: D12.2 Benign neoplasm of ascending colon (principal); R93.89 Abnormal findings on diagnostic imaging of other specified body structures; Z80.0 Family history of malignant neoplasm of digestive organs; Z85.118 Personal history of other malignant neoplasm of bronchus and lung
CPT/HCPCS: 36415; 85027; J2704